=== PATIENT | male | born 1990 | race Caucasian/White ===

== ENCOUNTER 2016-10-20 08:27 | Emergency (ER) | payer OTHER ==
[2016-10-20 08:34] VITALS: BP 133/71; PULSE 90; RESP 18; TEMP 97.8
--- NOTE | 2016-10-20 08:45 | ED ---
General Adult HPI - General Chief complaint: Upper Respiratory Infection Stated complaint: COUGHING, CONGESTION Time Seen by Provider: 10/20/16 08:36 Source: patient, RN notes reviewed Mode of arrival: ambulatory Limitations: no limitations - History of Present Illness Initial comments: Patient 26-year-old male who presents emergency room today with chief complaint of cough congestion last 2 days. He has been to increased rhinorrhea and cough with positive sputum production with yellow in color. Patient denies any complaints or associated symptoms. Patient denies any recent fever, chills, shortness of breath, chest pain, back pain, abdominal pain, nausea or vomiting, numbness or tingling, dysuria or hematuria, constipation or diarrhea, headaches or visual changes, or any other complaints. - Related Data Home Medications Medication Instructions Recorded Confirmed Albuterol Inhaler [Ventolin Hfa 1 - 2 puff INHALATION Q4H PRN 10/20/16 10/20/16 Inhaler] Divalproex ER [Depakote ER] 1,000 mg PO BID 10/20/16 10/20/16 Paliperidone IM [Invega Sustenna] 234 mg IM Q30D 10/20/16 10/20/16 hydrOXYzine PAMOATE [Vistaril] 25 mg PO TID PRN 10/20/16 10/20/16 traZODone HCL [Desyrel] 100 mg PO HS 10/20/16 10/20/16 Previous Rx's Medication Instructions Recorded Loratadine [Claritin] 10 mg PO DAILY 20 Days 10/20/16 Allergies Allergy/AdvReac Type Severity Reaction Status Date / Time bee venom protein (honey bee) Allergy Unknown Verified 10/20/16 08:49 Review of Systems ROS Statement: Those systems with pertinent positive or pertinent negative responses have been documented in the HPI. ROS Other: All systems not noted in ROS Statement are negative. Past Medical History Past Medical History: Asthma, Seizure Disorder Additional Past Medical History / Comment(s): Pre diabetic History of Any Multi-Drug Resistant Organisms: None Reported Past Surgical History: No Surgical Hx Reported Past Psychological History: ADD/ADHD, Anxiety, Bipolar, Schizophrenia Smoking Status: Current every day smoker Past Alcohol Use History: None Reported Past Drug Use History: None Reported General Exam - General Exam Comments Initial Comments: General: The patient is awake and alert, in no distress, and does not appear acutely ill. Eye: Pupils are equal, round and reactive to light, extra-ocular movements are intact. No nystagmus. There is normal conjunctiva bilaterally. No signs of icterus. Ears, nose, mouth and throat: There are moist mucous membranes and no oral lesions. No tenderness over frontal or maxillary sinuses. Neck: The neck is supple, there is no tenderness or JVD. Cardiovascular: There is a regular rate and rhythm. No murmur, rub or gallop is appreciated. Respiratory: Lungs are clear to auscultation, respirations are non-labored, breath sounds are equal. No wheezes, stridor, rales, or rhonchi. Musculoskeletal: Normal ROM, no tenderness. Strength 5/5. Sensation intact. Pulses equal bilaterally 2+. Neurological: A&O x 3. CN II-XII intact, There are no obvious motor or sensory deficits. Coordination appears grossly intact. Speech is normal. Skin: Skin is warm and dry and no rashes or lesions are noted. Psychiatric: Cooperative, appropriate mood & affect, normal judgment. Limitations: no limitations Course Vital Signs 10/20/16 08:32 Temperature 97.8 F Pulse Rate 90 Respiratory 18 Rate Blood Pressure 133/71 O2 Sat by Pulse 99 Oximetry Medical Decision Making - Medical Decision Making Chest x-ray negative for any acute abnormality. Patient will be discharged home advised to use loratadine. Advised to use Flonase he states he has had at home. Patient will be discharged. Advised follow family doctor return for any other concerns. Disposition Clinical Impression: Upper respiratory infection Disposition: HOME SELF-CARE Condition: Good Instructions: Upper Respiratory Infection (ED) Additional Instructions: Please use medication as discussed. Please follow-up with family doctor in the next 2 days of symptoms have not improved. Please return to emergency room if the symptoms increase or worsen or for any other concerns. Prescriptions: Loratadine [Claritin] 10 mg PO DAILY 20 Days Referrals: Nonstaff,Physician [Primary Care Provider] - 1-2 days Time of Disposition: 09:04
--- NOTE | 2016-10-20 08:56 | XR ---
EXAMINATION TYPE: XR chest 2V DATE OF EXAM: 10/20/2016 COMPARISON: NONE TECHNIQUE: PA and lateral views submitted. HISTORY: Cough and congestion. FINDINGS: The lungs are clear and there is no pneumothorax, pleural effusion, or focal pneumonia. No overt fa ilure. IMPRESSION: 1. No acute process.
== END 2016-10-20 09:09 | disposition home or self-care (01) ==
LOC: EC 08:27
DX: J06.9 Acute upper respiratory infection, unspecified (principal); G40.909 Epilepsy, unspecified, not intractable, without status epilepticus; F31.9 Bipolar disorder, unspecified; F20.9 Schizophrenia, unspecified; F17.200 Nicotine dependence, unspecified, uncomplicated; Z91.030 Bee allergy status; Z79.899 Other long term (current) drug therapy
CPT/HCPCS: 71020; 99283

== ENCOUNTER 2016-12-27 13:08 | Emergency (ER) | payer OTHER ==
[2016-12-27 13:13] VITALS: BP 147/71; PULSE 80; RESP 20; TEMP 98.4
[2016-12-27] MEDS ORDERED: ONDANSETRON 4 MG ODT STARTER PACK 2 TAB BTL PO STA (13:41)
--- NOTE | 2016-12-27 13:43 | ED ---
General Adult HPI - General Chief complaint: Nausea/Vomiting/Diarrhea Stated complaint: vomiting Time Seen by Provider: 12/27/16 13:38 Source: patient, RN notes reviewed Mode of arrival: ambulatory Limitations: no limitations - History of Present Illness Initial comments: Patient is a 26-year-old male who presents emergency room today with a chief complaint of symptoms of nausea vomiting that started earlier today. Patient does admit that he believes he became overheated because of his next of kin heater at home. States he had an episode of nausea vomiting. States he had another episode prior to coming. He states not feeling nauseous at this time. States seems to come and go. He denies any abdominal pain. He denies any other sick contacts at home. Denies any other complaints. Patient denies any recent fever, chills, shortness of breath, chest pain, back pain, abdominal pain , numbness or tingling, dysuria or hematuria, constipation or diarrhea, headaches or visual changes, or any other complaints. - Related Data Home Medications Medication Instructions Recorded Confirmed Albuterol Inhaler [Ventolin Hfa 1 - 2 puff INHALATION Q4H PRN 10/20/16 10/20/16 Inhaler] Divalproex ER [Depakote ER] 1,000 mg PO BID 10/20/16 10/20/16 Paliperidone IM [Invega Sustenna] 234 mg IM Q30D 10/20/16 10/20/16 hydrOXYzine PAMOATE [Vistaril] 25 mg PO TID PRN 10/20/16 10/20/16 traZODone HCL [Desyrel] 100 mg PO HS 10/20/16 10/20/16 Previous Rx's Medication Instructions Recorded Loratadine [Claritin] 10 mg PO DAILY 20 Days tab 10/20/16 Ondansetron Odt [Zofran ODT] 4 mg PO Q8HR PRN #20 tab 12/27/16 Allergies Allergy/AdvReac Type Severity Reaction Status Date / Time bee venom protein (honey bee) Allergy Unknown Verified 12/27/16 13:13 Review of Systems ROS Statement: Those systems with pertinent positive or pertinent negative responses have been documented in the HPI. ROS Other: All systems not noted in ROS Statement are negative. Past Medical History Past Medical History: Asthma, Seizure Disorder Additional Past Medical History / Comment(s): Pre diabetic History of Any Multi-Drug Resistant Organisms: None Reported Past Surgical History: No Surgical Hx Reported Past Psychological History: ADD/ADHD, Anxiety, Bipolar, Schizophrenia Smoking Status: Current every day smoker Past Alcohol Use History: None Reported Past Drug Use History: None Reported General Exam - General Exam Comments Initial Comments: General: The patient is awake and alert, in no distress, and does not appear acutely ill. Eye: Pupils are equal, round and reactive to light, extra-ocular movements are intact. No nystagmus. There is normal conjunctiva bilaterally. No signs of icterus. Ears, nose, mouth and throat: There are moist mucous membranes and no oral lesions. Neck: The neck is supple, there is no tenderness or JVD. Cardiovascular: There is a regular rate and rhythm. No murmur, rub or gallop is appreciated. Respiratory: Lungs are clear to auscultation, respirations are non-labored, breath sounds are equal. No wheezes, stridor, rales, or rhonchi. Gastrointestinal: Soft, non-distended, non-tender abdomen without masses or organomegaly noted. There is no rebound or guarding present. No CVA tenderness. Bowel sounds are unremarkable. Musculoskeletal: Normal ROM, no tenderness. Strength 5/5. Sensation intact. Pulses equal bilaterally 2+. Neurological: A&O x 3. CN II-XII intact, There are no obvious motor or sensory deficits. Coordination appears grossly intact. Speech is normal. Skin: Skin is warm and dry and no rashes or lesions are noted. Psychiatric: Cooperative, appropriate mood & affect, normal judgment. Limitations: no limitations Course Vital Signs 12/27/16 13:11 Temperature 98.4 F Pulse Rate 80 Respiratory 20 Rate Blood Pressure 147/71 O2 Sat by Pulse 100 Oximetry Medical Decision Making - Medical Decision Making Patient examined at this time shows no signs of distress present soft nontender. His vitals are stable. He has no abdominal tenderness. No nausea at this time. Will be discharged home with a starter pack of nausea medication to use if needed and advised to increase oral fluids. Advised to return to emergency room if any symptoms increase worsen or for any other concerns. Disposition Clinical Impression: Nausea & vomiting Disposition: HOME SELF-CARE Condition: Good Instructions: Acute Nausea and Vomiting (ED) Additional Instructions: Please use medication as discussed. Please follow-up with family doctor in the next 2 days of symptoms have not improved. Please return to emergency room if the symptoms increase or worsen or for any other concerns. Prescriptions: Ondansetron Odt [Zofran ODT] 4 mg PO Q8HR PRN #20 tab PRN Reason: Nausea Referrals: None,Stated [Primary Care Provider] - 1-2 days Time of Disposition: 13:43
== END 2016-12-27 14:02 | disposition home or self-care (01) ==
LOC: EC 13:08 → EEVIPCON 13:08 → EC 14:02
DX: R11.2 Nausea with vomiting, unspecified (principal); F41.9 Anxiety disorder, unspecified; F31.9 Bipolar disorder, unspecified; F20.9 Schizophrenia, unspecified; F17.200 Nicotine dependence, unspecified, uncomplicated; Z79.899 Other long term (current) drug therapy; Z91.030 Bee allergy status
CPT/HCPCS: 99283; S0119

== ENCOUNTER 2017-05-11 09:10 | Emergency (ER) | payer OTHER ==
[2017-05-11 09:50] VITALS: BP 131/58; PULSE 76; RESP 16; TEMP 98.7
--- NOTE | 2017-05-11 10:00 | ED ---
General Adult HPI - General Chief complaint: Neck Pain/Injury Stated complaint: Vomiting Time Seen by Provider: 05/11/17 09:52 Source: patient, RN notes reviewed Mode of arrival: ambulatory Limitations: no limitations - History of Present Illness Initial comments: This is a 26-year-old female presents emergency Department chief complaint of cough congestion. Patient states symptoms started a few days ago. Patient states been coughed so hard that he vomits. He states he does not have any abdominal pain no nausea rest she is coughing. Patient denies any known fevers or chills denies ear pain does admit to some runny nose congestion symptoms. Patient has tried no [id number] cough and cold medications other than cough drops. Patient also complains of pain on the right side of his neck towards the front. Patient states it feels swollen. - Related Data Home Medications Medication Instructions Recorded Confirmed Albuterol Inhaler [Ventolin Hfa 1 - 2 puff INHALATION RT-Q4H PRN 10/20/16 Inhaler] Divalproex ER [Depakote ER] 1,000 mg PO BID 10/20/16 05/11/17 Paliperidone IM [Invega Sustenna] 234 mg IM Q30D 10/20/16 05/11/17 Fenofibrate [Fenofibrate] 160 mg PO DAILY 05/11/17 05/11/17 Fluticasone Nasal [place] [Flonase 1 spray EA NOSTRIL DAILY 05/11/17 05/11/17 Nasal [place]] Montelukast [Singulair] 10 mg PO HS 05/11/17 05/11/17 Omeprazole [Omeprazole] 20 mg PO BID 05/11/17 05/11/17 cloNIDine HCL [Catapres] 0.1 mg PO BID 05/11/17 05/11/17 metFORMIN HCL [Glucophage] 500 mg PO DAILY 05/11/17 05/11/17 Previous Rx's Medication Instructions Recorded Amoxicillin/Potassium Clav 1 tab PO Q12HR #20 tab 05/11/17 [Augmentin 875-125 Tablet] Ondansetron Odt [Zofran Odt] 4 mg PO Q8HR PRN #10 tab 05/11/17 guaiFENesin-DM 100-10MG/5ML 10 ml PO Q8HR #1 bottle 05/11/17 [Robitussin DM] Allergies Allergy/AdvReac Type Severity Reaction Status Date / Time bee venom protein (honey bee) Allergy Unknown Verified 05/11/17 10:19 Review of Systems ROS Statement: Those systems with pertinent positive or pertinent negative responses have been documented in the HPI. ROS Other: All systems not noted in ROS Statement are negative. Past Medical History Past Medical History: Asthma, Seizure Disorder Additional Past Medical History / Comment(s): Pre diabetic History of Any Multi-Drug Resistant Organisms: None Reported Past Surgical History: No Surgical Hx Reported Past Psychological History: ADD/ADHD, Anxiety, Bipolar, Schizophrenia Smoking Status: Current every day smoker Past Alcohol Use History: None Reported Past Drug Use History: None Reported General Exam Limitations: no limitations General appearance: alert, in no apparent distress Head exam: Present: atraumatic, normocephalic, normal inspection Eye exam: Present: normal appearance, PERRL, EOMI. Absent: scleral icterus, conjunctival injection, periorbital swelling ENT exam: Present: normal exam, normal oropharynx, mucous membranes moist, TM's normal bilaterally, normal external ear exam Neck exam: Present: normal inspection, full ROM, lymphadenopathy (Tenderness the right anterior cervical chain with swollen lymph node). Absent: tenderness , meningismus Respiratory exam: Present: normal lung sounds bilaterally. Absent: respiratory distress, wheezes, rales, rhonchi, stridor Cardiovascular Exam: Present: regular rate, normal rhythm, normal heart sounds. Absent: systolic murmur, diastolic murmur, rubs, gallop, clicks GI/Abdominal exam: Present: soft, normal bowel sounds. Absent: distended, tenderness, guarding, rebound, rigid Back exam: Absent: CVA tenderness (R), CVA tenderness (L) Skin exam: Present: warm, dry, intact, normal color. Absent: rash Course Vital Signs 05/11/17 09:46 Temperature 98.7 F Pulse Rate 76 Respiratory 16 Rate Blood Pressure 131/58 O2 Sat by Pulse 97 Oximetry Medical Decision Making - Medical Decision Making 26-year-old male present emergency department for multiple complaints. Patient has URI with lymphadenopathy. Patient given antibiotics for that. Patient also has posttussive vomiting will give Zofran advised to merchandise pickup/receiving associate over-the- counter cough syrup. Disposition Clinical Impression: Cervical lymphadenopathy, URI (upper respiratory infection), Post-tussive emesis Disposition: HOME SELF-CARE Condition: Stable Instructions: Upper Respiratory Infection (ED) Additional Instructions: Please return to the Emergency Department if symptoms worsen or any other concerns. Prescriptions: Amoxicillin/Potassium Clav [Augmentin 875-125 Tablet] 1 tab PO Q12HR #20 tab guaiFENesin-DM 100-10MG/5ML [Robitussin DM] 10 ml PO Q8HR #1 bottle Ondansetron Odt [Zofran Odt] 4 mg PO Q8HR PRN #10 tab PRN Reason: Nausea Referrals: None,Stated [Primary Care Provider] - 1-2 days Time of Disposition: 10:28
--- NOTE | 2017-05-11 10:22 | XR ---
EXAMINATION TYPE: XR chest 2V DATE OF EXAM: 05/11/2017 COMPARISON: NONE HISTORY: Chest pain TECHNIQUE: Frontal and lateral views of the chest are obtained. FINDINGS: There is no focal air space opacity. No evidence for pneumothorax. No pleural effusion. The cardiac silhouette size is within normal limits. The osseous structures are grossly intact. IMPRESSION: 1. No acute cardiopulmonary process.
[2017-05-11] MEDS ORDERED: IBUPROFEN 600 MG TAB PO STA (10:31)
== END 2017-05-11 10:48 | disposition home or self-care (01) ==
LOC: EC 09:10
DX: R59.0 Localized enlarged lymph nodes (principal); J06.9 Acute upper respiratory infection, unspecified; R11.10 Vomiting, unspecified; J45.909 Unspecified asthma, uncomplicated; G40.909 Epilepsy, unspecified, not intractable, without status epilepticus; F31.9 Bipolar disorder, unspecified; F90.9 Attention-deficit hyperactivity disorder, unspecified type; F41.9 Anxiety disorder, unspecified; F20.9 Schizophrenia, unspecified; F17.200 Nicotine dependence, unspecified, uncomplicated; Z79.51 Long term (current) use of inhaled steroids; Z79.899 Other long term (current) drug therapy; Z91.030 Bee allergy status
CPT/HCPCS: 71046; 99284

== ENCOUNTER 2017-07-13 14:32 | Inpatient (IN) | payer MEDICAID, OTHER ==
--- NOTE | 2017-07-13 15:46 | ED ---
Psych HPI - General Chief Complaint: Psychiatric Symptoms Stated Complaint: Petition Time Seen by Provider: 07/13/17 14:47 Source: patient, police, RN notes reviewed, old records reviewed Mode of arrival: ambulatory - History of Present Illness Initial Comments: Patient is a 26-year-old male presents emergency department today chief complaint of suicidal ideation and aggressive behavior. Apparently according to court petition Patient has not been taking his medication, he has an injectable medication he has not had since March. Patient has been acting aggressive towards his guardian. Also made threats to harm his landlord. Patient arrives via police escort. Uncooperative. - Related Data Home Medications Medication Instructions Recorded Confirmed Divalproex ER [Depakote ER] 1,000 mg PO BID 10/20/16 07/13/17 Fenofibrate [Fenofibrate] 160 mg PO DAILY 05/11/17 07/13/17 Fluticasone Nasal [place] [Flonase 1 spray EA NOSTRIL DAILY 05/11/17 07/13/17 Nasal [place]] Montelukast [Singulair] 10 mg PO HS 05/11/17 07/13/17 Omeprazole [Omeprazole] 20 mg PO BID 05/11/17 07/13/17 cloNIDine HCL [Catapres] 0.1 mg PO HS 05/11/17 07/13/17 metFORMIN HCL [Glucophage] 500 mg PO DAILY 05/11/17 07/13/17 Lisinopril [Zestril] 5 mg PO DAILY 07/11/17 07/13/17 Albuterol Inhaler [Ventolin Hfa 1 - 2 puff INHALATION RT-Q4H PRN 07/13/17 Inhaler] Allergies Allergy/AdvReac Type Severity Reaction Status Date / Time bee venom protein (honey bee) Allergy Unknown Verified 07/13/17 15:34 Review of Systems ROS Statement: Those systems with pertinent positive or pertinent negative responses have been documented in the HPI. ROS Other: All systems not noted in ROS Statement are negative. Past Medical History Past Medical History: Asthma, Seizure Disorder Additional Past Medical History / Comment(s): Pre diabetic History of Any Multi-Drug Resistant Organisms: None Reported Past Surgical History: No Surgical Hx Reported Past Psychological History: ADD/ADHD, Anxiety, Bipolar, Depression, Schizophrenia Smoking Status: Current every day smoker Past Alcohol Use History: Occasional Past Drug Use History: None Reported General Exam - General Exam Comments Initial Comments: 26-year-old male. Alert and oriented. No acute distress. Limitations: no limitations General appearance: alert, in no apparent distress Head exam: Present: atraumatic, normocephalic, normal inspection Eye exam: Present: normal appearance, PERRL, EOMI. Absent: scleral icterus, conjunctival injection, periorbital swelling ENT exam: Present: normal exam, mucous membranes moist Neck exam: Present: normal inspection. Absent: tenderness, meningismus, lymphadenopathy Respiratory exam: Present: normal lung sounds bilaterally. Absent: respiratory distress, wheezes, rales, rhonchi, stridor Cardiovascular Exam: Present: regular rate, normal rhythm, normal heart sounds. Absent: systolic murmur, diastolic murmur, rubs, gallop, clicks GI/Abdominal exam: Present: soft, normal bowel sounds. Absent: distended, tenderness, guarding, rebound, rigid Extremities exam: Present: normal inspection, full ROM, normal capillary refill. Absent: tenderness, pedal edema, joint swelling, calf tenderness Back exam: Present: normal inspection Neurological exam: Present: alert, oriented X3, CN II-XII intact Psychiatric exam: Present: agitated, anxious. Absent: normal affect, normal mood, homicidal ideation, suicidal ideation Skin exam: Present: warm, dry, intact, normal color. Absent: rash Course Vital Signs 07/13/17 07/13/17 14:39 18:36 Temperature 97.1 F L 97 F L Pulse Rate 70 55 L Respiratory 18 18 Rate Blood Pressure 128/61 116/56 O2 Sat by Pulse 98 97 Oximetry Medical Decision Making - Medical Decision Making Patient was evaluated by EPS. They felt Patient will benefit from admission. Clinical suspicion medication filled out by Dr. Ashley. Patient's been cooperative in the emergency department since initial evaluation. - Lab Data Lab Results 07/13/17 07/13/17 Range/Units 16:30 16:40 Urine Opiates Screen Not Detected (NotDetected) Ur Oxycodone Screen Not Detected (NotDetected) Urine Methadone Screen Not Detected (NotDetected) Ur Propoxyphene Screen Not Detected (NotDetected) Ur Barbiturates Screen Not Detected (NotDetected) Valproic Acid <10.0 ug/mL U Tricyclic Antidepress Not Detected (NotDetected) Ur Phencyclidine Scrn Not Detected (NotDetected) Ur Amphetamines Screen Not Detected (NotDetected) U Methamphetamines Scrn Not Detected (NotDetected) U Benzodiazepines Scrn Not Detected (NotDetected) Urine Cocaine Screen Not Detected (NotDetected) U Marijuana (THC) Screen Not Detected (NotDetected) Disposition Clinical Impression: Aggression, Non-compliant patient Disposition: ADMITTED IP TO THIS HOSP Condition: Stable Is patient prescribed a controlled substance at d/c from ED?: No When asked, does pt state using other controlled substances?: No If prescribed controlled substance>3 days was MAPS reviewed?: No If opioid is for acute pain is fill amount 7 days or less?: No If Rx opioid, was Start Talking consent form obtained?: No Time of Disposition: 19:38
[2017-07-13 17:00] LABS: Phencyclidine Screen,Urine Not Detected (NotDetected); Urn Cannabinoid Scrn Not Detected (NotDetected)
[2017-07-13 17:01] LABS: Amphetamine Screen,Urine Not Detected (NotDetected); Barbiturate Screen,Urine Not Detected (NotDetected); Benzodiazepines Screen,Urine Not Detected (NotDetected); Cocaine Screen,Urine Not Detected (NotDetected); Methadone Screen, Urine Not Detected (NotDetected); Opiate Screen,Urine Not Detected (NotDetected); Oxycodone Screen, Urine Not Detected (NotDetected); Tricyclic Antidepressant,Urine Not Detected (NotDetected)
[2017-07-13] MEDS ORDERED: LORazepam 2 MG/ML INJ IM STA (17:23)
[2017-07-13] MEDS ORDERED: ZIPRASIDONE 20 MG VIAL IM STA (17:25)
[2017-07-13] MEDS ORDERED: ACETAMINOPHEN TAB 325 MG TAB PO PRN (18:52)
[2017-07-13] MEDS ORDERED: MAG HYDROX/AL HYDROX/SIMETH 30 ML CUP PO PRN (18:52)
[2017-07-13] MEDS ORDERED: MAGNESIUM HYDROXIDE 2,400 MG/10 ML CUP PO PRN (18:52)
[2017-07-13] MEDS ORDERED: ALBUTEROL INHALER 60 PUFF/8 GM INHALER INHALATION PRN (18:55)
[2017-07-13] MEDS ORDERED: LORazepam 2 MG/ML INJ IM PRN (18:56)
[2017-07-13] MEDS ORDERED: PALIPERIDONE IM 234 MG/1.5 ML SYG IM STA (18:57)
[2017-07-13 19:16] LABS: Appearance,Urine Turbid (Clear); Bacteria,Urine Rare /hpf; Bilirubin,Urine Negative (Negative); Blood,Urine Negative (Negative); Budding Yeast,Urine Many /hpf; Calcium Oxalate Crystals,Urine Many /hpf; Color,Urine Yellow; Glucose,Urine (UA) Negative (Negative); Ketones,Urine Negative (Negative); Leukocyte Esterase,Urine Trace (Negative); Mucus,Urine Few /hpf; Nitrite,Urine Negative (Negative); PH, Urine 7.5 (5.0-8.0); Protein,Urine 1+ (Negative); RBC,Urine 2 /hpf (0-5); Specific Gravity,Urine 1.024 (1.001-1.035); WBC,Urine 8 /hpf (0-5)
[2017-07-13] MEDS: NICOTINE 14MG/24HR PATCH TRANSDERM SCH (20:04)
[2017-07-13] MEDS: DIVALPROEX ER 500 MG TAB.ER.24H PO SCH (20:29)
[2017-07-13] MEDS: MONTELUKAST 10 MG TAB PO SCH (20:31)
[2017-07-13] MEDS: cloNIDine HCL 0.1 MG TAB PO SCH (20:31)
[2017-07-13] MEDS: diphenhydrAMINE 50 MG CAP PO SCH (20:31)
[2017-07-13 23:01] LABS: Chloride 108 mmol/L (98-107); Neutrophils # (A) 6.1 k/uL (1.3-7.7)
[2017-07-13 23:05] LABS: ALT 41 U/L (21-72); AST 29 U/L (17-59); Albumin 4.7 g/dL (3.5-5.0); Alkaline Phosphatase 47 U/L (38-126); Anion Gap 18 mmol/L; Basophils % (A) 0 %; Blood Urea Nitrogen 10 mg/dL (9-20); Carbon Dioxide 22 mmol/L (22-30); Cholesterol 123 mg/dL (<200); Eosinophils # (A) 0.1 k/uL (0-0.7); Eosinophils % (A) 1 %; Glucose 61 mg/dL (74-99); HCT 51.9 % (39.0-53.0); HDL Cholesterol 33 mg/dL (40-60); HGB 17.2 gm/dL (13.0-17.5); LDL Cholesterol,Calculated 49 mg/dL (0-99); Lymphocytes # (A) 2.4 k/uL (1.0-4.8); Lymphocytes % (A) 27 %; MCH 28.5 pg (25.0-35.0); MCHC 33.2 g/dL (31.0-37.0); MCV 85.7 fL (80.0-100.0); Mean Platelet Volume 9.4; Monocytes # (A) 0.4 k/uL (0-1.0); Monocytes % (A) 5 %; Neutrophils % (A) 67 %; Platelet Count 191 k/uL (150-450); Potassium 4.2 mmol/L (3.5-5.1); RBC 6.06 m/uL (4.30-5.90); RDW 13.5 % (11.5-15.5); Sodium 148 mmol/L (137-145); Total Bilirubin 0.3 mg/dL (0.2-1.3); Total Protein 7.3 g/dL (6.3-8.2); Triglycerides 206 mg/dL (<150); WBC 9.1 k/uL (3.8-10.6)
[2017-07-14] MEDS: NICOTINE 14MG/24HR PATCH TRANSDERM SCH (07:51)
[2017-07-14] MEDS: FLUTICASONE 50MCG/SPRAY NASAL 16GM EA NOSTRIL SCH (07:51)
[2017-07-14] MEDS: DIVALPROEX ER 500 MG TAB.ER.24H PO SCH ×2 (07:51→21:07)
[2017-07-14] MEDS: FENOFIBRATE 160 MG TAB PO SCH (07:51)
[2017-07-14] MEDS: LISINOPRIL 5 MG TAB PO SCH (07:51)
[2017-07-14] MEDS: PANTOPRAZOLE 40 MG TABLET PO SCH (07:51)
[2017-07-14] MEDS: metFORMIN 500 MG TAB PO SCH (07:58)
[2017-07-14] MEDS: NICOTINE POLACRILEX 2 MG GUM BUCCAL PRN ×4 (09:51→21:10)
[2017-07-14] MEDS: LORazepam 1 MG TAB PO PRN ×2 (12:41→19:00)
[2017-07-14 13:11] LABS: Hemoglobin A1C 5.2 % (4.0-6.0)
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
[2017-07-14] MEDS: diphenhydrAMINE 50 MG CAP PO SCH (21:07)
[2017-07-14] MEDS: cloNIDine HCL 0.1 MG TAB PO SCH (21:07)
[2017-07-14] MEDS: MONTELUKAST 10 MG TAB PO SCH (21:07)
[2017-07-14] MEDS: SULFAMETHOX-TMP 800-160MG 1 EACH TAB PO SCH (21:08)
--- NOTE | 2017-07-15 03:52 | CONS ---
CONSULTATION DATE OF SERVICE: 07/14/2017 HISTORY OF PRESENT ILLNESS: This 26-year-old gentleman with a past medical history of asthma, seizure disorder, ADHD, bipolar depression was admitted for psychiatric evaluations. There is no history of fever, rigors or chills. No history of headache, loss of consciousness or seizures at this time. PAST MEDICAL HISTORY: History of asthma, seizure disorder, ADHD, anxiety, bipolar depression. MEDICATIONS: Prior to admission include home medications are: 1. Invega Sustenna 235 mg IM monthly. 2. Glucovance 500 mg p.o. daily. 3. Catapres 0.1 q.h.s. 4. Omeprazole 20 mg daily. 5. Singulair 10 mg q.h.s. 6. Zestril 5 daily. 7. Flonase 1 spray daily. 8. Fenofibrate 160 mg p.o. daily. 9. Depakote ER 1000 mg p.o. b.i.d. 10.Ventolin 1-2 puffs q.4h p.r.n. ALLERGIES: BEE VENOM. FAMILY HISTORY: History of in the family. SOCIAL HISTORY: History of smoking and occasional alcohol intake. REVIEW OF SYSTEMS: ENT: No diminished hearing or vision. CARDIOVASCULAR: No angina or palpitation. Respirations: No cough or hemoptysis. GI no nausea or vomiting. no dysuria or hematuria. Nervous System: No numbness or weakness. Allergy/Immunology: No asthma or hayfever. Musculoskeletal: As mentioned earlier. Hematology/Oncology: No history of anemia. Endocrine: Diabetes. Constitutional: As mentioned earlier. Dermatology: Negative. Rheumatology: Negative. Psychiatric: As mentioned earlier. PHYSICAL EXAMINATION: GENERAL: Alert and oriented times three. VITAL SIGNS: Pulse is 65, blood pressure 150/63, respirations 16, temperature 97.8, pulse ox 97% on room air. HEENT: Conjunctivae normal. Oral mucosa moist. NECK is no jugular venous distention. No carotid bruit. No lymph node enlargement. CARDIOVASCULAR: S1, S2. RESPIRATIONS: Breath sounds diminished in the bases. A few scattered rhonchi. No crackles. ABDOMEN: Soft, nontender. No mass palpable. LEGS: No edema and no swelling. NERVOUS SYSTEM: Higher functions as mentioned earlier. Moves all four limbs. No focal deficits. LYMPHATICS: No lymph nodes palpable in the neck, axillae or groin. SKIN: No ulcers, rash or bleeding. LAB DATA: CBC within normal limits. Sodium 148 and UA 8 WBC. ASSESSMENT: 1. Anxiety, bipolar depression. 2. Possible urinary tract infection. 3. Asthma. 4. Seizure disorder. 5. History of prediabetes. 7. History of continued ongoing nicotine dependence. 8. History of attention-deficit disorder/attention-deficit/hyperactivity disorder. RECOMMENDATIONS AND DISCUSSION: In this 26 -year-old gentleman who presented with multiple complex medical issues, we will monitor the patient closely. Continue the current medications, management and symptomatic treatment. I would recommend resume the home medications. Monitor blood sugars closely. Otherwise further recommendations per psychiatric service. I would also recommend a short course of antibiotics also for the presumed UTI. Continue the current medications, management and symptomatic treatment. Otherwise at this time I would recommend continue with a short course of antibiotics. Further recommendations to follow. MMODL / IJN: [id number] / MTDSheba
[2017-07-15] MEDS: NICOTINE POLACRILEX 2 MG GUM BUCCAL PRN ×6 (08:13→21:03)
[2017-07-15] MEDS: DIVALPROEX ER 500 MG TAB.ER.24H PO SCH ×2 (08:13→20:57)
[2017-07-15] MEDS: LISINOPRIL 5 MG TAB PO SCH (08:13)
[2017-07-15] MEDS: SULFAMETHOX-TMP 800-160MG 1 EACH TAB PO SCH ×2 (08:14→20:57)
[2017-07-15] MEDS: metFORMIN 500 MG TAB PO SCH (08:14)
[2017-07-15] MEDS: FENOFIBRATE 160 MG TAB PO SCH (08:14)
[2017-07-15] MEDS: PANTOPRAZOLE 40 MG TABLET PO SCH (08:14)
[2017-07-15 08:25] LABS: Cholesterol 97 mg/dL (<200); HDL Cholesterol 31 mg/dL (40-60); LDL Cholesterol,Calculated 34 mg/dL (0-99); Triglycerides 158 mg/dL (<150)
[2017-07-15] MEDS: FLUTICASONE 50MCG/SPRAY NASAL 16GM EA NOSTRIL SCH (09:25)
[2017-07-15] MEDS: LORazepam 1 MG TAB PO PRN (13:26)
--- NOTE | 2017-07-15 17:53 | P.PN ---
Progress Note - Text Progress Note Date: 07/15/17 Patient was seen today. Stated he has not done anything wrong to be in the hospital. Stated he wanted to go home. Sister visited him today, claims his sister was tearful about him being in the hospital. Reports good sleep and appetite. Nice current symptoms of depression. He is preoccupied about his discharge and asks staff repeatedly about his discharge. He asked for will be taking him home when he gets discharged. He stated police brought him here so police can take him back home. He wants to live with his aunt. He states his aunt doesn't have a car. He is upset about being petitioned by his guardian. He reports being compliant with his medications. No Side effects reported. No anger or agitation reported. This is 26-year-old male. He is morbidly obese. He is concerned about his obesity and asks for weight reduction medications. He appeared in fair grooming and hygiene. He maintains good eye contact. No abnormal movements noted. Speech and thought processes are linear and goal directed. He has baseline paranoia. Denies current auditory or visual hallucinations. He denies current suicidal or homicidal ideations. Alert and oriented 4. Insight and judgment are improving. Continue Depakote thousand milligrams twice daily. He received invega 234 mg im in er. to recieve his next dose of 156mg im within a week of his first injection and monthly thereafter. Monitor for symptoms Encourage participation in therapeutic group therapies and downey milieu. antisqueak worker to coordinate treatment team meeting with the patient's guardian and discharge planning
[2017-07-15] MEDS: cloNIDine HCL 0.1 MG TAB PO SCH (20:56)
[2017-07-15] MEDS: MONTELUKAST 10 MG TAB PO SCH (20:57)
[2017-07-15] MEDS: diphenhydrAMINE 50 MG CAP PO SCH (20:57)
[2017-07-16] MEDS: NICOTINE POLACRILEX 2 MG GUM BUCCAL PRN ×7 (05:26→22:16)
[2017-07-16] MEDS: FENOFIBRATE 160 MG TAB PO SCH (08:12)
[2017-07-16] MEDS: LISINOPRIL 5 MG TAB PO SCH (08:12)
[2017-07-16] MEDS: DIVALPROEX ER 500 MG TAB.ER.24H PO SCH ×2 (08:12→21:29)
[2017-07-16] MEDS: metFORMIN 500 MG TAB PO SCH (08:12)
[2017-07-16] MEDS: FLUTICASONE 50MCG/SPRAY NASAL 16GM EA NOSTRIL SCH (08:12)
[2017-07-16] MEDS: PANTOPRAZOLE 40 MG TABLET PO SCH (08:13)
[2017-07-16] MEDS: SULFAMETHOX-TMP 800-160MG 1 EACH TAB PO SCH ×2 (08:13→20:15)
--- NOTE | 2017-07-16 08:28 | P.PN ---
Progress Note - Text Progress Note Date: 07/16/17 Patient was seen for a routine follow-up examination. Patient does not have any complaint. He hopes to be discharged tomorrow. He has been taking his medications, interacts with peers, attends groups and denies any adverse effects from his medications. This is a white ambulatory male with adequate hygiene. He is polite and cooperative. He does not show any psychomotor agitation or retardation. His speech is spontaneous relevant and goal-directed. His mood is euthymic and affect is appropriate. He denies suicide and homicide thoughts, hallucinations and delusional thinking. He is well oriented with adequate memory concentration general fund of knowledge etc. Plan: Continue Depakote and other medications for physical problems, groups and other therapies.
[2017-07-16] MEDS: LORazepam 1 MG TAB PO PRN ×2 (09:26→18:11)
[2017-07-16] MEDS: MONTELUKAST 10 MG TAB PO SCH (20:15)
[2017-07-16] MEDS: diphenhydrAMINE 50 MG CAP PO SCH (20:15)
[2017-07-16] MEDS: cloNIDine HCL 0.1 MG TAB PO SCH (20:16)
[2017-07-16] MEDS: ZIPRASIDONE 20 MG VIAL IM PRN (22:23)
[2017-07-17] MEDS: metFORMIN 500 MG TAB PO SCH (08:41)
[2017-07-17] MEDS: DIVALPROEX ER 500 MG TAB.ER.24H PO SCH ×2 (08:41→20:52)
[2017-07-17] MEDS: LISINOPRIL 5 MG TAB PO SCH (08:41)
[2017-07-17] MEDS: PANTOPRAZOLE 40 MG TABLET PO SCH (08:41)
[2017-07-17] MEDS: FENOFIBRATE 160 MG TAB PO SCH (08:41)
[2017-07-17] MEDS: SULFAMETHOX-TMP 800-160MG 1 EACH TAB PO SCH ×2 (08:42→20:52)
[2017-07-17] MEDS: NICOTINE POLACRILEX 2 MG GUM BUCCAL PRN ×4 (08:47→23:05)
[2017-07-17] MEDS: FLUTICASONE 50MCG/SPRAY NASAL 16GM EA NOSTRIL SCH (09:12)
--- NOTE | 2017-07-17 11:19 | P.PN ---
Progress Note - Text Progress Note Date: 07/17/17 Patient was seen for routine follow-up examination. He has been asking me if he can go home today on multiple times. He has been taking his medications and attends groups. Has not been violent or combative. He has a guardian and the social media content manager is trying to contact him regarding discharge plan. This is a white ambulatory male with adequate hygiene. He is polite and cooperative. He does not show any psychomotor agitation or retardation. His speech is spontaneous and goal-directed. He continues to deny suicide and homicide thoughts, hallucinations and delusional thinking. He is oriented with adequate memory concentration etc. Plan: Continue his current medications groups and other therapies. Discharge is deferred until the social media content manager can contact the guardian and gets the clearance.
[2017-07-17] MEDS: ZIPRASIDONE 20 MG VIAL IM PRN (13:55)
[2017-07-17] MEDS: diphenhydrAMINE 50 MG CAP PO SCH (20:52)
[2017-07-17] MEDS: MONTELUKAST 10 MG TAB PO SCH (20:52)
[2017-07-17] MEDS: cloNIDine HCL 0.1 MG TAB PO SCH (20:52)
[2017-07-17] MEDS: LORazepam 1 MG TAB PO PRN (21:23)
[2017-07-18 05:38] VITALS: BP 128/73; PULSE 97; RESP 16; TEMP 97.7
[2017-07-18] MEDS: DIVALPROEX ER 500 MG TAB.ER.24H PO SCH (08:03)
[2017-07-18] MEDS: PANTOPRAZOLE 40 MG TABLET PO SCH (08:03)
[2017-07-18] MEDS: metFORMIN 500 MG TAB PO SCH (08:03)
[2017-07-18] MEDS: FENOFIBRATE 160 MG TAB PO SCH (08:03)
[2017-07-18] MEDS: LISINOPRIL 5 MG TAB PO SCH (08:03)
[2017-07-18] MEDS: FLUTICASONE 50MCG/SPRAY NASAL 16GM EA NOSTRIL SCH (08:03)
[2017-07-18] MEDS: SULFAMETHOX-TMP 800-160MG 1 EACH TAB PO SCH (08:03)
--- NOTE | 2017-07-18 10:05 | P.DS ---
Providers Date of admission: 07/13/17 18:29 Expected date of discharge: 07/18/17 Attending physician: Yazmin Anthony Consults: 07/14/17 07:30 Consult Physician Routine Consulting Provider: Oliverio Ramos Consult Reason/Comments: history and physical Do you want consulting provider notified?: Yes Primary care physician: [facility] Course: Patient had his psychiatric evaluation done by , had his physical examination and psychosocial evaluation. Patient already had his Invega Sustenna injection in the ER before he came to the unit. His Depakote was continued at the dose of 1000 mg twice a day. Patient attended groups, socialized with peers and interacted with staff. He continued to take his medications as prescribed and did not show any violent or threatening behavior. He also agreed to comply with outpatient treatment. His discharge plan was discussed with his legal guardian who agreed with the discharge plan. Patient was started on Bactrim DS for UTI which cleared up. In view of all these it was agreed to discharge him. Condition on discharge: This is an obese ambulatory white male with adequate hygiene. He does not show any psychomotor agitation or retardation. His speech is spontaneous relevant and goal-directed. His mood is euthymic and affect is appropriate. He continues to deny suicide and homicide thoughts. He is well oriented with adequate memory concentration etc. But he has difficulty in calculation and some problem solving. His insight and judgment are improving. Diagnosis on discharge: Other specified bipolar and related disorder F 31.89. Unspecified intellectual disability F 79. ALLERGY to bee stings. Bronchial asthma. Hypertension. Hyperlipidemia. ALLERGIC rhinitis. Diabetes mellitus. GERD. UTI resolved. Obesity. Patient was advised and agreed to take his medications as prescribed, to learn better coping skills through therapy, not to drive or operate missionary if he feels sleepy, not to drink alcohol or use drugs, to call his psychiatrist or therapist if he feels confused, gets suicidal thoughts etc. and if he cannot get hold of them to go to nearest ER. Patient Condition at Discharge: Stable Plan - Discharge Summary New Discharge Prescriptions: New Acetaminophen Tab [Tylenol] 650 mg PO Q4HR PRN tab PRN Reason: Pain/Discomfort Mag Hydrox/Al Hydrox/Simeth [Maalox] 30 ml PO Q4HR PRN cup PRN Reason: GI Upset Pantoprazole [Protonix] 40 mg PO AC-BRKFST 30 Days #30 tablet.dr Continue Divalproex ER [Depakote ER] 1,000 mg PO BID cloNIDine HCL [Catapres] 0.1 mg PO HS Fenofibrate 160 mg PO DAILY Fluticasone Nasal [place] [Flonase Nasal [place]] 1 spray EA NOSTRIL DAILY metFORMIN HCL [Glucophage] 500 mg PO DAILY Lisinopril [Zestril] 5 mg PO DAILY Albuterol Inhaler [Ventolin Hfa Inhaler] 1 - 2 puff INHALATION RT-Q4H PRN PRN Reason: Shortness Of Breath Paliperidone IM [Invega Sustenna] 234 mg IM QMONTH 30 Days #1 syringe Discontinued Montelukast [Singulair] 10 mg PO HS Omeprazole [Omeprazole] 20 mg PO BID Discharge Medication List Divalproex ER [Depakote ER] 1,000 mg PO BID 10/20/16 [History] Fenofibrate 160 mg PO DAILY 05/11/17 [History] Fluticasone Nasal [place] [Flonase Nasal [place]] 1 spray EA NOSTRIL DAILY 05/11/17 [History] cloNIDine HCL [Catapres] 0.1 mg PO HS 05/11/17 [History] metFORMIN HCL [Glucophage] 500 mg PO DAILY 05/11/17 [History] Lisinopril [Zestril] 5 mg PO DAILY 07/11/17 [History] Albuterol Inhaler [Ventolin Hfa Inhaler] 1 - 2 puff INHALATION RT-Q4H PRN [History] Acetaminophen Tab [Tylenol] 650 mg PO Q4HR PRN tab 07/18/17 [Rx] Mag Hydrox/Al Hydrox/Simeth [Maalox] 30 ml PO Q4HR PRN cup 07/18/17 [Rx] Paliperidone IM [Invega Sustenna] 234 mg IM QMONTH 30 Days #1 syringe 07/18/17 [ Rx] Pantoprazole [Protonix] 40 mg PO AC-BRKFST 30 Days #30 tablet. 07/18/17 [Rx] Follow up Appointment(s)/Referral(s): [facility] [Outside] - 07/19/17 10:00 am (07.19.17 at 10:00am with Yancy 06.05.18 at 08:20am with Dr. Oliveira) [facility] [Primary Care Provider] - 1-2 days
== END 2017-07-18 12:19 | disposition home or self-care (01) | DRG 885 ==
LOC: EC 14:32 → 3MHU 18:29
PROVIDERS: ADMIT Psychiatry & Neurology Psychiatry; ATTEND Psychiatry & Neurology Psychiatry
DX: F31.89 Other bipolar disorder (principal); N39.0 Urinary tract infection, site not specified; R45.851 Suicidal ideations; F79 Unspecified intellectual disabilities; E11.9 Type 2 diabetes mellitus without complications; E66.01 Morbid (severe) obesity due to excess calories; E78.5 Hyperlipidemia, unspecified; F17.210 Nicotine dependence, cigarettes, uncomplicated; F41.9 Anxiety disorder, unspecified; G40.909 Epilepsy, unspecified, not intractable, without status epilepticus; I10 Essential (primary) hypertension; J45.909 Unspecified asthma, uncomplicated; K21.9 Gastro-esophageal reflux disease without esophagitis; Z91.030 Bee allergy status; Z91.19 Patient's noncompliance with other medical treatment and regimen; Z79.51 Long term (current) use of inhaled steroids; Z79.899 Other long term (current) drug therapy; Z79.84 Long term (current) use of oral hypoglycemic drugs
CPT/HCPCS: 80053; 80061; 80164; 80306; 81001; 82075; 83036; 84443; 85025; 99285

== ENCOUNTER 2017-08-20 19:36 | Emergency (ER) | payer OTHER ==
[2017-08-20 19:41] VITALS: BP 126/83; PULSE 80; RESP 18; TEMP 99
[2017-08-20] MEDS ORDERED: TOBRAMYCIN 0.3% OPHTH DROPS 5 ML BTL LEFT EYE STA (20:21)
--- NOTE | 2017-08-20 20:24 | ED ---
General Adult HPI - General Chief complaint: ENT Stated complaint: eye swelling/discharge Time Seen by Provider: 08/20/17 19:36 Source: patient, RN notes reviewed Mode of arrival: ambulatory Limitations: no limitations - History of Present Illness Initial comments: This is a 27-year-old male presents emergency Department complaining of some drainage from his left eye as well as a very red left eye. Patient states it started yesterday and has gotten a little bit worse today. Patient denies any blurred vision. Patient denies any pain. Patient states he is somewhat itchy. Patient denies any recent fever chills or cough. Patient denies sore throat or any ear pain. - Related Data Home Medications Medication Instructions Recorded Confirmed Divalproex ER [Depakote ER] 1,000 mg PO BID 10/20/16 08/20/17 Fenofibrate 160 mg PO DAILY 05/11/17 08/20/17 Fluticasone Nasal [place] [Flonase 1 spray EA NOSTRIL DAILY 05/11/17 08/20/17 Nasal [place]] cloNIDine HCL [Catapres] 0.1 mg PO HS 05/11/17 08/20/17 Lisinopril [Zestril] 5 mg PO DAILY 07/11/17 08/20/17 Albuterol Inhaler [Ventolin Hfa 1 - 2 puff INHALATION RT-Q4H PRN 07/13/17 Inhaler] Loratadine [Claritin] 10 mg PO DAILY 08/20/17 08/20/17 Pantoprazole [Protonix] 40 mg PO DAILY 08/20/17 08/20/17 diphenhydrAMINE [Benadryl] 50 mg PO HS 08/20/17 08/20/17 fluPHENAZine DECANOATE [Prolixin 25 mg IM Q7D 08/20/17 08/20/17 Decanoate] Allergies Allergy/AdvReac Type Severity Reaction Status Date / Time bee venom protein (honey bee) Allergy Unknown Verified 08/20/17 19:55 Review of Systems ROS Statement: Those systems with pertinent positive or pertinent negative responses have been documented in the HPI. ROS Other: All systems not noted in ROS Statement are negative. Past Medical History Past Medical History: Asthma, Seizure Disorder Additional Past Medical History / Comment(s): Pre diabetic History of Any Multi-Drug Resistant Organisms: None Reported Past Surgical History: No Surgical Hx Reported Past Psychological History: ADD/ADHD, Anxiety, Bipolar, Depression, Schizophrenia Smoking Status: Current every day smoker Past Alcohol Use History: None Reported Past Drug Use History: None Reported General Exam - General Exam Comments Initial Comments: GENERAL Patient is well-developed and well-nourished. Patient is in mild distress. EYES Patient's pupils are equal and round. Extraocular motion is intact. Patient has very injected conjunctiva. Patient also has some drainage out of the left eye. Patient's upper eyelid is mildly swollen. SKIN Unremarkable NEURO The patient is alert and oriented 3 PYSCH Patient has normal interpersonal interactions. MUSCULOSKELETAL All 4 extremities have full range of motion Limitations: no limitations Course Vital Signs 08/20/17 19:37 Temperature 99 F Pulse Rate 80 Respiratory 18 Rate Blood Pressure 126/83 O2 Sat by Pulse 97 Oximetry Disposition Clinical Impression: Conjunctivitis Disposition: HOME SELF-CARE Condition: Good Instructions: Conjunctivitis (ED) Is patient prescribed a controlled substance at d/c from ED?: No Referrals: [facility] [Primary Care Provider] - 1-2 days Time of Disposition: 20:24
[2017-08-21] MEDS ORDERED: TOBRAMYCIN 0.3% OPHTH DROPS 5 ML BTL LEFT EYE SCH
== END 2017-08-20 20:45 | disposition home or self-care (01) ==
LOC: EC 19:36
DX: H10.9 Unspecified conjunctivitis (principal); J45.909 Unspecified asthma, uncomplicated; G40.909 Epilepsy, unspecified, not intractable, without status epilepticus; F31.9 Bipolar disorder, unspecified; F20.9 Schizophrenia, unspecified; F90.9 Attention-deficit hyperactivity disorder, unspecified type; F41.9 Anxiety disorder, unspecified; F17.200 Nicotine dependence, unspecified, uncomplicated; Z79.51 Long term (current) use of inhaled steroids; Z79.899 Other long term (current) drug therapy; Z91.030 Bee allergy status
CPT/HCPCS: 99283

== ENCOUNTER 2017-09-18 20:33 | Emergency (ER) | payer OTHER ==
[2017-09-18 20:53] VITALS: BP 120/80; PULSE 80; RESP 18; TEMP 98.2
--- NOTE | 2017-09-18 22:30 | ED ---
General Adult HPI - General Source: patient Mode of arrival: ambulatory Limitations: no limitations <Maverick Ritter - Last Filed: 09/18/17 22:29> <Robert Mann - Last Filed: 09/19/17 01:41> - General Chief complaint: Psychiatric Symptoms Stated complaint: Mental Health Time Seen by Provider: 09/18/17 20:55 - History of Present Illness Initial comments: Patient was originally seen by Dr. Ritter. Patient reevaluated by myself, Dr. Mann. Patient resting comfortably in bed. Patient states he is here because he does not have his medications. Patient was seen earlier in the day by [facility]. They state patient should have his medication and they're trying to figure out why the patient does not. Patient usually gets medications given to him weekly. Patient has no other complaints. Patient denies any suicidal or homicidal thoughts. Patient denies any physical complaints. (Robert Mann) - Related Data Home Medications Medication Instructions Recorded Confirmed Divalproex ER [Depakote ER] 1,000 mg PO BID 10/20/16 09/18/17 Fenofibrate 160 mg PO DAILY 05/11/17 09/18/17 Fluticasone Nasal [place] [Flonase 1 spray EA NOSTRIL DAILY 05/11/17 09/18/17 Nasal [place]] cloNIDine HCL [Catapres] 0.1 mg PO HS 05/11/17 09/18/17 Lisinopril [Zestril] 5 mg PO DAILY 07/11/17 09/18/17 Albuterol Inhaler [Ventolin Hfa 1 - 2 puff INHALATION RT-Q4H PRN 07/13/17 Inhaler] Loratadine [Claritin] 10 mg PO DAILY 08/20/17 09/18/17 Pantoprazole [Protonix] 40 mg PO DAILY 08/20/17 09/18/17 diphenhydrAMINE [Benadryl] 50 mg PO HS 08/20/17 09/18/17 fluPHENAZine DECANOATE [Prolixin 25 mg IM Q7D 08/20/17 09/18/17 Decanoate] metFORMIN HCL [Glucophage] 250 mg PO HS 09/18/17 09/18/17 metFORMIN HCL [Glucophage] 500 mg PO QAM 09/18/17 09/18/17 Allergies Allergy/AdvReac Type Severity Reaction Status Date / Time bee venom protein (honey bee) Allergy Unknown Verified 09/18/17 21:00 Review of Systems ROS Other: All systems not noted in ROS Statement are negative. <Maverick Ritter - Last Filed: 09/18/17 22:29> ROS Other: All systems not noted in ROS Statement are negative. <Robert Mann - Last Filed: 09/19/17 01:41> ROS Statement: Those systems with pertinent positive or pertinent negative responses have been documented in the HPI. Past Medical History Past Medical History: Asthma, Seizure Disorder Additional Past Medical History / Comment(s): Pre diabetic History of Any Multi-Drug Resistant Organisms: None Reported Past Surgical History: No Surgical Hx Reported Past Psychological History: ADD/ADHD, Anxiety, Bipolar, Depression, Schizophrenia Smoking Status: Current every day smoker Past Alcohol Use History: None Reported Past Drug Use History: None Reported <Maverick Ritter - Last Filed: 09/18/17 22:29> General Exam Limitations: no limitations <Maverick Ritter - Last Filed: 09/18/17 22:29> General appearance: alert, in no apparent distress Head exam: Present: atraumatic Eye exam: Present: normal appearance Respiratory exam: Present: normal lung sounds bilaterally Cardiovascular Exam: Present: regular rate, normal rhythm Extremities exam: Present: normal inspection Neurological exam: Present: alert Psychiatric exam: Present: normal affect, normal mood. Absent: suicidal ideation Skin exam: Present: normal color <Robert Mann - Last Filed: 09/19/17 01:41> Vital Signs 09/18/17 20:50 Temperature 98.2 F Pulse Rate 80 Respiratory 18 Rate Blood Pressure 120/80 O2 Sat by Pulse 100 Oximetry Medical Decision Making <Maverick Ritter - Last Filed: 09/18/17 22:29> <Robert Mann - Last Filed: 09/19/17 01:41> - Medical Decision Making Patient was seen by mental health services who recommends discharge. Patient will be seen tomorrow by [facility]. They do request considering giving patient Depakote 500 mg, Protonix, and metformin which patient normally takes. Accu- Chek is 108 and metformin will be held at this time. (Robert Mann) - Lab Data Lab Results 09/19/17 09/19/17 Range/Units 00:30 01:28 POC Glucose (mg/dL) 108 H (75-99) mg/dL POC Glu Citrix Lead ID Justine Jackson Urine Opiates Screen Not Detected (NotDetected) Ur Oxycodone Screen Not Detected (NotDetected) Urine Methadone Screen Not Detected (NotDetected) Ur Propoxyphene Screen Not Detected (NotDetected) Ur Barbiturates Screen Not Detected (NotDetected) U Tricyclic Antidepress Not Detected (NotDetected) Ur Phencyclidine Scrn Not Detected (NotDetected) Ur Amphetamines Screen Not Detected (NotDetected) U Methamphetamines Scrn Not Detected (NotDetected) U Benzodiazepines Scrn Not Detected (NotDetected) Urine Cocaine Screen Not Detected (NotDetected) U Marijuana (THC) Screen Not Detected (NotDetected) Disposition <Maverick Ritter - Last Filed: 09/18/17 22:29> Is patient prescribed a controlled substance at d/c from ED?: No Time of Disposition: 01:41 <Robert Mann - Last Filed: 09/19/17 01:41> Clinical Impression: Medication management Disposition: HOME SELF-CARE Condition: Stable Additional Instructions: Please follow-up with [facility] tomorrow as planned. Please also follow-up to primary care physician in the next day or 2 for recheck. Return for thoughts of self-harm or worsening symptoms or other concerns. Use medications as directed. Referrals: [facility] [Primary Care Provider] - 1-2 days
[2017-09-19 00:53] LABS: Amphetamine Screen,Urine Not Detected (NotDetected); Barbiturate Screen,Urine Not Detected (NotDetected); Benzodiazepines Screen,Urine Not Detected (NotDetected); Cocaine Screen,Urine Not Detected (NotDetected); Methadone Screen, Urine Not Detected (NotDetected); Opiate Screen,Urine Not Detected (NotDetected); Oxycodone Screen, Urine Not Detected (NotDetected); Phencyclidine Screen,Urine Not Detected (NotDetected); Tricyclic Antidepressant,Urine Not Detected (NotDetected); Urn Cannabinoid Scrn Not Detected (NotDetected)
[2017-09-19 01:29] LABS: Glucose,Whole Blood 108 mg/dL (75-99)
[2017-09-19] MEDS ORDERED: DIVALPROEX ER 500 MG TAB.ER.24H PO STA (01:37)
[2017-09-19] MEDS ORDERED: PANTOPRAZOLE 40 MG TABLET PO STA (01:37)
== END 2017-09-19 02:00 | disposition home or self-care (01) ==
LOC: EC 20:33
DX: Z51.81 Encounter for therapeutic drug level monitoring (principal); J45.909 Unspecified asthma, uncomplicated; G40.909 Epilepsy, unspecified, not intractable, without status epilepticus; F90.9 Attention-deficit hyperactivity disorder, unspecified type; F41.9 Anxiety disorder, unspecified; F20.9 Schizophrenia, unspecified; F17.200 Nicotine dependence, unspecified, uncomplicated; Z79.84 Long term (current) use of oral hypoglycemic drugs; Z79.899 Other long term (current) drug therapy; Z91.030 Bee allergy status
CPT/HCPCS: 36415; 80306; 82075; 99284

== ENCOUNTER 2017-11-22 15:32 | Emergency (ER) | payer OTHER ==
[2017-11-22 15:38] VITALS: BP 121/73; PULSE 86; RESP 18; TEMP 98.4
--- NOTE | 2017-11-22 15:52 | ED ---
URI HPI - General Chief Complaint: Upper Respiratory Infection Stated Complaint: Cough/congestion Time Seen by Provider: 11/22/17 15:39 Source: patient, RN notes reviewed Mode of arrival: ambulatory Limitations: no limitations - History of Present Illness Initial Comments: This is a 27-year-old male who presents to the emergency department with chief complaint of cough. Patient states that he has had a productive cough of green sputum for the past "few weeks." States that the cough is hacking and causes him to vomit at times. He also reports sneezing, sore throat. He states he is a current, every day smoker. He smokes one pack per day. Patient states he is fully up-to-date with vaccinations. Denies fevers or chills, difficulty breathing, abdominal pain, nausea, diarrhea. - Related Data Home Medications Medication Instructions Recorded Confirmed Divalproex ER [Depakote ER] 1,000 mg PO BID 10/20/16 09/18/17 Fenofibrate 160 mg PO DAILY 05/11/17 09/18/17 Fluticasone Nasal [place] [Flonase 1 spray EA NOSTRIL DAILY 05/11/17 09/18/17 Nasal [place]] cloNIDine HCL [Catapres] 0.1 mg PO HS 05/11/17 09/18/17 Lisinopril [Zestril] 5 mg PO DAILY 07/11/17 09/18/17 Albuterol Inhaler [Ventolin Hfa 1 - 2 puff INHALATION RT-Q4H PRN 07/13/17 Inhaler] Loratadine [Claritin] 10 mg PO DAILY 08/20/17 09/18/17 Pantoprazole [Protonix] 40 mg PO DAILY 08/20/17 09/18/17 diphenhydrAMINE [Benadryl] 50 mg PO HS 08/20/17 09/18/17 fluPHENAZine DECANOATE [Prolixin 25 mg IM Q7D 08/20/17 09/18/17 Decanoate] metFORMIN HCL [Glucophage] 250 mg PO HS 09/18/17 09/18/17 metFORMIN HCL [Glucophage] 500 mg PO QAM 09/18/17 09/18/17 Previous Rx's Medication Instructions Recorded guaiFENesin [Mucinex] 600 mg PO Q12HR PRN #10 tablet 11/22/17 Allergies Allergy/AdvReac Type Severity Reaction Status Date / Time bee venom protein (honey bee) Allergy Unknown Verified 11/22/17 15:34 Review of Systems ROS Statement: Those systems with pertinent positive or pertinent negative responses have been documented in the HPI. ROS Other: All systems not noted in ROS Statement are negative. Past Medical History Past Medical History: Asthma, Seizure Disorder Additional Past Medical History / Comment(s): Pre- diabetic History of Any Multi-Drug Resistant Organisms: None Reported Past Surgical History: No Surgical Hx Reported Past Psychological History: ADD/ADHD, Anxiety, Bipolar, Depression, Schizophrenia Smoking Status: Current every day smoker Past Alcohol Use History: None Reported Past Drug Use History: None Reported General Exam - General Exam Comments Initial Comments: General: Awake and alert, well-developed; in no apparent distress. Does not appear acutely ill. HEENT: Head atraumatic, normocephalic. Pupils are equal, round and reactive to light. Extraocular movements intact. Oropharynx moist without erythema or exudate. Bilateral TMs pearly without effusion. Neck: Supple. Normal ROM. Cardiovascular: Regular rate and rhythm. No murmurs, rubs or gallops. Chest symmetrical. Respiratory: Lungs clear to auscultation bilaterally. No wheezes, rales or rhonchi. Normal respiratory effort with no use of accessory muscles. Musculoskeletal: Normal ROM, no tenderness bilateral upper and lower extremities. Ambulating normally. Skin: [place], warm and dry without rashes or lesions. Neurological: Alert and oriented x3. CN II-XII grossly intact. Speech is fluent and answers are appropriate. No focal neuro deficits. Limitations: no limitations Course Vital Signs 11/22/17 15:34 Temperature 98.4 F Pulse Rate 86 Respiratory 18 Rate Blood Pressure 121/73 O2 Sat by Pulse 96 Oximetry Medical Decision Making - Medical Decision Making This is a 27-year-old male who presents to the emergency department with chief complaint of cough. Patient is a current, every day smoker. Reports cough is hacking and has been present for the past few weeks. Denies fevers. Lungs are clear to auscultation bilaterally. Chest x-ray reveals no acute abnormalities. Patient likely suffering from upper respiratory infection. Recommend symptomatic treatment. Vitals are stable and patient is in no acute distress. He will be discharged home at this time. He is in agreement and voices understanding. All questions were answered. - Radiology Data Radiology results: report reviewed, image reviewed Chest x-ray impression: No acute process. Disposition Clinical Impression: Upper respiratory infection Disposition: HOME SELF-CARE Condition: Good Instructions: Upper Respiratory Infection (ED) Additional Instructions: Please follow up with primary care provider within 1-2 days. Return to emergency department if symptoms should worsen or any concerns arise. Prescriptions: guaiFENesin [Mucinex] 600 mg PO Q12HR PRN #10 tablet PRN Reason: Cough Is patient prescribed a controlled substance at d/c from ED?: No Referrals: [facility] [Primary Care Provider] - 1-2 days Time of Disposition: 16:07
--- NOTE | 2017-11-22 16:00 | XR ---
EXAMINATION TYPE: XR chest 2V DATE OF EXAM: 11/22/2017 COMPARISON: 05/11/2017 TECHNIQUE: PA and lateral views submitted. HISTORY: Cough FINDINGS: The lungs are clear and there is no pneumothorax, pleural effusion, or focal pneumonia. IMPRESSION: 1. No acute process.
== END 2017-11-22 16:11 | disposition home or self-care (01) ==
LOC: EC 15:32
DX: J06.9 Acute upper respiratory infection, unspecified (principal); J45.909 Unspecified asthma, uncomplicated; G40.909 Epilepsy, unspecified, not intractable, without status epilepticus; F20.9 Schizophrenia, unspecified; F31.9 Bipolar disorder, unspecified; F17.210 Nicotine dependence, cigarettes, uncomplicated; Z91.018 Allergy to other foods; Z79.51 Long term (current) use of inhaled steroids; Z79.84 Long term (current) use of oral hypoglycemic drugs; Z79.899 Other long term (current) drug therapy
CPT/HCPCS: 71046; 99283

== ENCOUNTER 2017-11-30 18:52 | Emergency (ER) | payer OTHER ==
[2017-11-30 19:10] VITALS: BP 145/89; PULSE 67; RESP 16; TEMP 98.5
--- NOTE | 2017-11-30 19:44 | ED ---
ENT HPI - General Chief complaint: ENT Stated complaint: rt ear pain Time Seen by Provider: 11/30/17 19:35 Source: patient, RN notes reviewed Mode of arrival: ambulatory Limitations: no limitations - History of Present Illness Initial comments: 27-year-old male presents emergency Department chief complaint of right ear pain 2 hours. Patient states he woke up with the pain. Patient's had recent URI symptoms. Patient denies any drainage no trauma states he doesn't use any Q -tips or any other foreign objects. Patient denies any other complaints at this time. - Related Data Home Medications Medication Instructions Recorded Confirmed Divalproex ER [Depakote ER] 1,000 mg PO BID 10/20/16 09/18/17 Fenofibrate 160 mg PO DAILY 05/11/17 09/18/17 Fluticasone Nasal [place] [Flonase 1 spray EA NOSTRIL DAILY 05/11/17 09/18/17 Nasal [place]] cloNIDine HCL [Catapres] 0.1 mg PO HS 05/11/17 09/18/17 Lisinopril [Zestril] 5 mg PO DAILY 07/11/17 09/18/17 Albuterol Inhaler [Ventolin Hfa 1 - 2 puff INHALATION RT-Q4H PRN 07/13/17 Inhaler] Loratadine [Claritin] 10 mg PO DAILY 08/20/17 09/18/17 Pantoprazole [Protonix] 40 mg PO DAILY 08/20/17 09/18/17 diphenhydrAMINE [Benadryl] 50 mg PO HS 08/20/17 09/18/17 fluPHENAZine DECANOATE [Prolixin 25 mg IM Q7D 08/20/17 09/18/17 Decanoate] metFORMIN HCL [Glucophage] 250 mg PO HS 09/18/17 09/18/17 metFORMIN HCL [Glucophage] 500 mg PO QAM 09/18/17 09/18/17 Previous Rx's Medication Instructions Recorded guaiFENesin-DM 100-10MG/5ML 1 - 2 tsp PO Q4-6H PRN #4 oz 11/22/17 [Robitussin DM] Ofloxacin 0.3% Otic Soln [Floxin 10 drops BOTH EARS BID #10 ml 11/30/17 0.3% Otic Soln] Allergies Allergy/AdvReac Type Severity Reaction Status Date / Time bee venom protein (honey bee) Allergy Unknown Verified 11/30/17 19:10 Review of Systems ROS Statement: Those systems with pertinent positive or pertinent negative responses have been documented in the HPI. ROS Other: All systems not noted in ROS Statement are negative. Past Medical History Past Medical History: Asthma, Seizure Disorder Additional Past Medical History / Comment(s): Pre- diabetic History of Any Multi-Drug Resistant Organisms: None Reported Past Surgical History: No Surgical Hx Reported Past Psychological History: ADD/ADHD, Anxiety, Bipolar, Depression, Schizophrenia Smoking Status: Current every day smoker Past Alcohol Use History: None Reported Past Drug Use History: None Reported General Exam Limitations: no limitations General appearance: alert, in no apparent distress Head exam: Present: atraumatic, normocephalic, normal inspection ENT exam: Present: normal oropharynx, mucous membranes moist, TM's normal bilaterally. Absent: normal external ear exam (Right EAC erythematous) Neck exam: Present: normal inspection. Absent: tenderness, meningismus, lymphadenopathy Respiratory exam: Present: normal lung sounds bilaterally. Absent: respiratory distress, wheezes, rales, rhonchi, stridor Cardiovascular Exam: Present: regular rate, normal rhythm, normal heart sounds. Absent: systolic murmur, diastolic murmur, rubs, gallop, clicks Course Vital Signs 11/30/17 19:07 Temperature 98.5 F Pulse Rate 67 Respiratory 16 Rate Blood Pressure 145/89 O2 Sat by Pulse 98 Oximetry Medical Decision Making - Medical Decision Making 27-year-old male presented for right ear pain. Patient has a right otitis externa. Patient was started on ofloxacin return parameters were discussed. Disposition Clinical Impression: Otitis externa Disposition: HOME SELF-CARE Condition: Stable Instructions: Earache (ED) Additional Instructions: Please return to the Emergency Department if symptoms worsen or any other concerns. Prescriptions: Ofloxacin 0.3% Otic Soln [Floxin 0.3% Otic Soln] 10 drops BOTH EARS BID #10 ml Is patient prescribed a controlled substance at d/c from ED?: No Referrals: [facility] [Primary Care Provider] - 1-2 days Time of Disposition: 19:44
== END 2017-11-30 19:51 | disposition home or self-care (01) ==
LOC: EC 18:52
DX: H60.91 Unspecified otitis externa, right ear (principal); G40.909 Epilepsy, unspecified, not intractable, without status epilepticus; J45.909 Unspecified asthma, uncomplicated; F20.9 Schizophrenia, unspecified; F90.9 Attention-deficit hyperactivity disorder, unspecified type; F31.9 Bipolar disorder, unspecified; F41.9 Anxiety disorder, unspecified; E11.9 Type 2 diabetes mellitus without complications; F17.200 Nicotine dependence, unspecified, uncomplicated; Z79.51 Long term (current) use of inhaled steroids; Z79.84 Long term (current) use of oral hypoglycemic drugs; Z79.899 Other long term (current) drug therapy; Z91.030 Bee allergy status
CPT/HCPCS: 99282

== ENCOUNTER 2017-12-29 18:21 | Emergency (ER) | payer OTHER ==
[2017-12-29] MEDS ORDERED: ONDANSETRON 4 MG/2 ML VIAL IVP STA (18:44)
[2017-12-29] MEDS ORDERED: SODIUM CHLORIDE 0.9% 1,000 ML IV STA (18:44)
[2017-12-29] MEDS ORDERED: SODIUM CHLORIDE 0.9% 500 ML 500 ML IV STA (18:44)
--- NOTE | 2017-12-29 18:49 | ED ---
Nausea/Vomiting/Diarrhea HPI - General Source: patient, EMS, RN notes reviewed Mode of arrival: EMS Limitations: no limitations <Fer Dockery - Last Filed: 12/29/17 20:10> <Nancy Anna - Last Filed: 12/30/17 23:34> - General Chief complaint: Nausea/Vomiting/Diarrhea Stated complaint: Nausea Time Seen by Provider: 12/29/17 18:24 - History of Present Illness Initial comments: This a 27-year-old male presents emergency Department chief complaint of nausea vomiting. Patient presents via EMS. Patient initially refused IV and antiemetics. Patient states he has mild abdominal pain but only primary complaint of nausea vomiting last 3 days. Denies any hematemesis or coffee- ground emesis. Denies any fever, chills, URI symptoms, diarrhea constipation. Patient has no dysuria no hematuria. Patient denies any sick contacts. (Fer Dockery) - Related Data Home Medications Medication Instructions Recorded Confirmed Divalproex ER [Depakote ER] 1,000 mg PO BID 10/20/16 11/30/17 Fenofibrate 160 mg PO DAILY 05/11/17 11/30/17 Fluticasone Nasal [place] [Flonase 1 spray EA NOSTRIL DAILY 05/11/17 11/30/17 Nasal [place]] cloNIDine HCL [Catapres] 0.1 mg PO HS 05/11/17 11/30/17 Lisinopril [Zestril] 5 mg PO DAILY 07/11/17 11/30/17 Albuterol Inhaler [Ventolin Hfa 1 - 2 puff INHALATION RT-Q4H PRN 07/13/17 Inhaler] Loratadine [Claritin] 10 mg PO DAILY 08/20/17 11/30/17 Pantoprazole [Protonix] 40 mg PO DAILY 08/20/17 11/30/17 diphenhydrAMINE [Benadryl] 50 mg PO HS 08/20/17 11/30/17 fluPHENAZine DECANOATE [Prolixin 25 mg IM Q7D 08/20/17 11/30/17 Decanoate] metFORMIN HCL [Glucophage] 250 mg PO HS 09/18/17 11/30/17 metFORMIN HCL [Glucophage] 500 mg PO QAM 09/18/17 11/30/17 Varenicline [Chantix Continuing 1 mg PO BID 11/30/17 11/30/17 Pack] Previous Rx's Medication Instructions Recorded guaiFENesin-DM 100-10MG/5ML 1 - 2 tsp PO Q4-6H PRN #4 oz 11/22/17 [Robitussin DM] Ofloxacin 0.3% Otic Soln [Floxin 10 drops BOTH EARS BID #10 ml 11/30/17 0.3% Otic Soln] Ondansetron Odt [Zofran Odt] 4 mg PO Q8HR PRN #10 tab 12/29/17 Allergies Allergy/AdvReac Type Severity Reaction Status Date / Time bee venom protein (honey bee) Allergy Unknown Verified 11/30/17 19:46 Review of Systems ROS Other: All systems not noted in ROS Statement are negative. <Fer Dockery - Last Filed: 12/29/17 20:10> ROS Other: All systems not noted in ROS Statement are negative. <Nancy Anna - Last Filed: 12/30/17 23:34> ROS Statement: Those systems with pertinent positive or pertinent negative responses have been documented in the HPI. Past Medical History Past Medical History: Asthma, Seizure Disorder Additional Past Medical History / Comment(s): Pre- diabetic History of Any Multi-Drug Resistant Organisms: None Reported Past Surgical History: No Surgical Hx Reported Past Psychological History: ADD/ADHD, Anxiety, Bipolar, Depression, Schizophrenia Smoking Status: Current every day smoker Past Alcohol Use History: None Reported Past Drug Use History: None Reported <Fer Dockery - Last Filed: 12/29/17 20:10> General Exam Limitations: no limitations General appearance: alert, in no apparent distress Head exam: Present: atraumatic, normocephalic, normal inspection Eye exam: Present: normal appearance, PERRL, EOMI. Absent: scleral icterus, conjunctival injection, periorbital swelling ENT exam: Present: normal exam, normal oropharynx, mucous membranes moist, TM's normal bilaterally Neck exam: Present: normal inspection, full ROM. Absent: tenderness, meningismus, lymphadenopathy Respiratory exam: Present: normal lung sounds bilaterally. Absent: respiratory distress, wheezes, rales, rhonchi, stridor Cardiovascular Exam: Present: regular rate, normal rhythm, normal heart sounds. Absent: systolic murmur, diastolic murmur, rubs, gallop, clicks GI/Abdominal exam: Present: soft, tenderness (Minimal epigastric), normal bowel sounds. Absent: distended, guarding, rebound, rigid Neurological exam: Present: alert, oriented X3, CN II-XII intact Skin exam: Present: warm, dry, intact, normal color. Absent: rash <Fer Dockery - Last Filed: 12/29/17 20:10> Course <Fer Dockery - Last Filed: 12/29/17 20:10> <Nancy Anna - Last Filed: 12/30/17 23:34> Vital Signs 12/29/17 12/29/17 12/29/17 18:24 19:38 20:25 Temperature 99 F 98.5 F Pulse Rate 84 89 90 Respiratory 16 18 18 Rate Blood Pressure 120/78 120/70 115/70 O2 Sat by Pulse 96 95 98 Oximetry - Reevaluation(s) Reevaluation #1: 12/29/17 20:10 Patient updated in reevaluated at this time. Patient states he feels 100% better. Patient is requesting to be discharged. I days. I have a urinalysis at this time he states he has no symptoms and again requests discharge. (Fer Dockery) Medical Decision Making - Lab Data Result diagrams: 12/29/17 18:50 12/29/17 18:50 <Fer Dockery - Last Filed: 12/29/17 20:10> - Lab Data Result diagrams: 12/29/17 18:50 12/29/17 18:50 <Nancy Anna - Last Filed: 12/30/17 23:34> - Medical Decision Making I was available for consultation in the emergency department. The history and physical exam were done by the Midlevel Provider. Medical decision making was done by the Midlevel Provider. The Midlevel Provider did not contact me for this patient's care. I was not directly involved in this patient's care. (Nancy Anna) - Lab Data Lab Results 12/29/17 12/29/17 Range/Units 18:50 18:50 WBC 7.8 (3.8-10.6) k/uL RBC 6.06 H (4.30-5.90) m/uL Hgb 17.6 H (13.0-17.5) gm/dL Hct 53.2 H (39.0-53.0) % MCV 87.8 (80.0-100.0) fL MCH 29.0 (25.0-35.0) pg MCHC 33.1 (31.0-37.0) g/dL RDW 13.1 (11.5-15.5) % Plt Count 184 (150-450) k/uL Neutrophils % 56 % Lymphocytes % 36 % Monocytes % 5 % Eosinophils % 1 % Basophils % 0 % Neutrophils # 4.4 (1.3-7.7) k/uL Lymphocytes # 2.8 (1.0-4.8) k/uL Monocytes # 0.4 (0-1.0) k/uL Eosinophils # 0.1 (0-0.7) k/uL Basophils # 0.0 (0-0.2) k/uL Sodium 140 (137-145) mmol/L Potassium 4.4 (3.5-5.1) mmol/L Chloride 106 (98-107) mmol/L Carbon Dioxide 21 L (22-30) mmol/L Anion Gap 13 mmol/L BUN 13 (9-20) mg/dL Creatinine 0.86 (0.66-1.25) mg/dL Est GFR (CKD-EPI)AfAm >90 (>60 ml/min/1.73 sqM) Est GFR (CKD-EPI)NonAf >90 (>60 ml/min/1.73 sqM) Glucose 100 H (74-99) mg/dL Calcium 10.2 (8.4-10.2) mg/dL Total Bilirubin 0.6 (0.2-1.3) mg/dL AST 17 (17-59) U/L ALT 21 (21-72) U/L Alkaline Phosphatase 30 L (38-126) U/L Total Protein 7.7 (6.3-8.2) g/dL Albumin 4.4 (3.5-5.0) g/dL Amylase 72 (30-110) U/L Lipase 68 (23-300) U/L Disposition Is patient prescribed a controlled substance at d/c from ED?: No Time of Disposition: 20:11 <Dedoe,Fer M - Last Filed: 12/29/17 20:10> <Nancy Anna P - Last Filed: 12/30/17 23:34> Clinical Impression: Nausea & vomiting Disposition: HOME SELF-CARE Condition: Stable Instructions: Acute Nausea and Vomiting (ED) Additional Instructions: Please return to the Emergency Department if symptoms worsen or any other concerns. Prescriptions: Ondansetron Odt [Zofran Odt] 4 mg PO Q8HR PRN #10 tab PRN Reason: Nausea Referrals: [facility] [Primary Care Provider] - 1-2 days
[2017-12-29 19:07] LABS: Basophils % (A) 0 %; Eosinophils # (A) 0.1 k/uL (0-0.7); Eosinophils % (A) 1 %; HCT 53.2 % (39.0-53.0); HGB 17.6 gm/dL (13.0-17.5); Lymphocytes # (A) 2.8 k/uL (1.0-4.8); Lymphocytes % (A) 36 %; MCHC 33.1 g/dL (31.0-37.0); MCV 87.8 fL (80.0-100.0); Mean Platelet Volume 8.8; Monocytes # (A) 0.4 k/uL (0-1.0); Monocytes % (A) 5 %; Neutrophils # (A) 4.4 k/uL (1.3-7.7); Neutrophils % (A) 56 %; Platelet Count 184 k/uL (150-450); RBC 6.06 m/uL (4.30-5.90); RDW 13.1 % (11.5-15.5); WBC 7.8 k/uL (3.8-10.6)
[2017-12-29 19:16] LABS: ALT 21 U/L (21-72); AST 17 U/L (17-59); Albumin 4.4 g/dL (3.5-5.0); Alkaline Phosphatase 30 U/L (38-126); Amylase 72 U/L (30-110); Anion Gap 13 mmol/L; Blood Urea Nitrogen 13 mg/dL (9-20); Calcium 10.2 mg/dL (8.4-10.2); Carbon Dioxide 21 mmol/L (22-30); Chloride 106 mmol/L (98-107); Glucose 100 mg/dL (74-99); Lipase 68 U/L (23-300); Potassium 4.4 mmol/L (3.5-5.1); Sodium 140 mmol/L (137-145); Total Bilirubin 0.6 mg/dL (0.2-1.3); Total Protein 7.7 g/dL (6.3-8.2)
[2017-12-29 19:38] VITALS: RESP 18
[2017-12-29 20:26] VITALS: BP 115/70; PULSE 90; TEMP 98.5
== END 2017-12-29 20:27 | disposition home or self-care (01) ==
LOC: EC 18:21
DX: R11.2 Nausea with vomiting, unspecified (principal); R10.9 Unspecified abdominal pain; J45.909 Unspecified asthma, uncomplicated; G40.909 Epilepsy, unspecified, not intractable, without status epilepticus; F20.9 Schizophrenia, unspecified; F17.200 Nicotine dependence, unspecified, uncomplicated; Z91.018 Allergy to other foods; Z79.51 Long term (current) use of inhaled steroids; Z79.84 Long term (current) use of oral hypoglycemic drugs; Z79.899 Other long term (current) drug therapy
CPT/HCPCS: 36415; 80053; 82150; 83690; 85025; 99284; 96374; 96361; J2405

== ENCOUNTER 2018-01-04 10:06 | Emergency (ER) | payer OTHER ==
[2018-01-04 10:19] VITALS: BP 122/78; PULSE 77; RESP 16; TEMP 98.4
[2018-01-04] MEDS ORDERED: TOBRAMYCIN 0.3% OPHTH DROPS 5 ML BTL RIGHT EYE STA (12:59)
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
== END 2018-01-04 13:25 | disposition home or self-care (01) ==
LOC: EC 10:06
DX: S05.01XA Injury of conjunctiva and corneal abrasion without foreign body, right eye, initial encounter (principal); J45.909 Unspecified asthma, uncomplicated; G40.909 Epilepsy, unspecified, not intractable, without status epilepticus; F17.200 Nicotine dependence, unspecified, uncomplicated; Z79.51 Long term (current) use of inhaled steroids; Z79.84 Long term (current) use of oral hypoglycemic drugs; Z79.899 Other long term (current) drug therapy; Z91.030 Bee allergy status
CPT/HCPCS: 99283

== ENCOUNTER → 2018-01-21 | Outpatient (CLI) | payer OTHER | LOC: LABWHC1 09:09 | PROVIDERS: ATTEND Psychiatry & Neurology Psychiatry | DX: Z51.81 Encounter for therapeutic drug level monitoring (principal); Z79.899 Other long term (current) drug therapy | CPT/HCPCS: 36415; 80164 ==

== ENCOUNTER 2018-02-15 11:26 | Emergency (ER) | payer OTHER ==
[2018-02-15 11:35] VITALS: BP 122/72; TEMP 98.2
[2018-02-15] MEDS ORDERED: PROPARACAINE 0.5% OPHTH DROPS 15 ML BTL BOTH EYES STA (11:52)
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
[2018-02-15 13:13] VITALS: PULSE 81; RESP 18
== END 2018-02-15 13:00 | disposition home or self-care (01) ==
LOC: EC 11:26
DX: T26.92XA Corrosion of left eye and adnexa, part unspecified, initial encounter (principal); T26.91XA Corrosion of right eye and adnexa, part unspecified, initial encounter; T20.44XA Corrosion of unspecified degree of nose (septum), initial encounter; J45.909 Unspecified asthma, uncomplicated; G40.909 Epilepsy, unspecified, not intractable, without status epilepticus; F31.9 Bipolar disorder, unspecified; F20.9 Schizophrenia, unspecified; F17.200 Nicotine dependence, unspecified, uncomplicated; Z91.018 Allergy to other foods; Z79.51 Long term (current) use of inhaled steroids; Z79.84 Long term (current) use of oral hypoglycemic drugs; Z79.899 Other long term (current) drug therapy; Y08.89XA Assault by other specified means, initial encounter; Y93.89 Activity, other specified
CPT/HCPCS: 99284

== ENCOUNTER 2018-03-12 15:46 | Emergency (ER) | payer OTHER ==
[2018-03-12 15:51] VITALS: BP 132/82; PULSE 87; RESP 18; TEMP 97.8
--- NOTE | 2018-03-12 16:34 | ED ---
General Adult HPI - General Source: patient, RN notes reviewed Mode of arrival: ambulatory Limitations: no limitations <Maverick Ritchie - Last Filed: 03/12/18 16:58> <Maverick Ritter - Last Filed: 03/12/18 17:38> - General Chief complaint: Psychiatric Symptoms Stated complaint: Mental health-needs new medication Time Seen by Provider: 03/12/18 15:50 - History of Present Illness Initial comments: This is a 27-year-old male who comes in stating that he has been having thoughts of hurting his staff at his home. Patient states he doesn't believe is medicines are working and that's why he keeps having these mood swings to the point where he wants to hurt people. Patient states he did not hurt anybody. Patient states he does not want hurt himself in any way. Patient states physically he is been fine he denies any recent illness. Patient denies any chest pain difficulty breathing shortness breath per patient denies abdominal pain patient denies nausea vomiting diarrhea per patient denies any recent fever chills or cough. (Maverick Ritchie) - Related Data Home Medications Medication Instructions Recorded Confirmed Divalproex ER [Depakote ER] 1,000 mg PO BID 10/20/16 03/12/18 Fenofibrate 160 mg PO DAILY 05/11/17 03/12/18 Fluticasone Nasal [place] [Flonase 1 spray EA NOSTRIL DAILY 05/11/17 03/12/18 Nasal [place]] cloNIDine HCL [Catapres] 0.1 mg PO HS 05/11/17 03/12/18 Lisinopril [Zestril] 5 mg PO DAILY 07/11/17 03/12/18 Albuterol Inhaler [Ventolin Hfa 1 - 2 puff INHALATION RT-Q4H PRN 07/13/17 Inhaler] Loratadine [Claritin] 10 mg PO DAILY 08/20/17 03/12/18 Pantoprazole [Protonix] 40 mg PO DAILY 08/20/17 03/12/18 fluPHENAZine DECANOATE [Prolixin 50 mg IM Q7D 08/20/17 03/12/18 Decanoate] metFORMIN HCL [Glucophage] 250 mg PO HS 09/18/17 03/12/18 metFORMIN HCL [Glucophage] 500 mg PO QAM 09/18/17 03/12/18 Varenicline [Chantix Continuing 1 mg PO BID 11/30/17 03/12/18 Pack] Ibuprofen [Motrin] 400 mg PO BID PRN 03/12/18 03/12/18 Triamcinolone 0.5% Cream [Kenalog 1 applic TOPICAL BID 03/12/18 03/12/18 0.5% Cream] Allergies Allergy/AdvReac Type Severity Reaction Status Date / Time bee venom protein (honey bee) Allergy Anaphylaxis Verified 03/12/18 16:04 Review of Systems ROS Other: All systems not noted in ROS Statement are negative. <Maverick Ritchie - Last Filed: 03/12/18 16:58> ROS Other: All systems not noted in ROS Statement are negative. <Maverick Ritter - Last Filed: 03/12/18 17:38> ROS Statement: Those systems with pertinent positive or pertinent negative responses have been documented in the HPI. Past Medical History Past Medical History: Asthma, Seizure Disorder Additional Past Medical History / Comment(s): Pre- diabetic History of Any Multi-Drug Resistant Organisms: None Reported Past Surgical History: No Surgical Hx Reported Past Psychological History: ADD/ADHD, Anxiety, Bipolar, Depression, Schizophrenia Smoking Status: Current every day smoker Past Alcohol Use History: None Reported Past Drug Use History: None Reported <Maverick Ritchie - Last Filed: 03/12/18 16:58> General Exam Limitations: no limitations <Maverick Ritchie - Last Filed: 03/12/18 16:58> <Maverick Ritter - Last Filed: 03/12/18 17:38> - General Exam Comments Initial Comments: GENERAL: Patient is well-developed and well-nourished. Patient is nontoxic and well- hydrated and is in no acute distress. ENT: Neck is soft and supple. No significant lymphadenopathy is noted. Oropharynx is clear. Moist mucous membranes. EYES: The sclera were anicteric and conjunctiva were pink and moist. Extraocular movements were intact and pupils were equal round and reactive to light. Eyelids were unremarkable. PULMONARY: Unlabored respirations. Good breath sounds bilaterally. No audible rales rhonchi or wheezing was noted. CARDIOVASCULAR: There is a regular rate and rhythm without any murmurs gallops or rubs. ABDOMEN: Soft and nontender with normal bowel sounds. SKIN: Skin is clear with no lesions or rashes and otherwise unremarkable. NEUROLOGIC: Patient is alert and oriented x3. Cranial nerves II through XII are grossly intact. Motor and sensory are also intact. Normal speech, volume and content. Symmetrical smile. MUSCULOSKELETAL: Normal extremities with adequate strength and full range of motion. PSYCHIATRIC: Patient states he wants to harm some other staff that he lives with. Patient denies any suicidal homicidal ideations. (Maverick Ritchie) Vital Signs 03/12/18 15:49 Temperature 97.8 F Pulse Rate 87 Respiratory 18 Rate Blood Pressure 132/82 O2 Sat by Pulse 96 Oximetry Medical Decision Making <Maverick Ritchie - Last Filed: 03/12/18 16:58> <Maverick Ritter - Last Filed: 03/12/18 17:38> - Medical Decision Making Dr. Ritter will be taking over the care of this patient at 5 PM (Maverick Ritchie) - Lab Data Lab Results 03/12/18 Range/Units 16:30 Urine Opiates Screen Not Detected (NotDetected) Ur Oxycodone Screen Not Detected (NotDetected) Urine Methadone Screen Not Detected (NotDetected) Ur Propoxyphene Screen Not Detected (NotDetected) Ur Barbiturates Screen Not Detected (NotDetected) U Tricyclic Antidepress Not Detected (NotDetected) Ur Phencyclidine Scrn Not Detected (NotDetected) Ur Amphetamines Screen Not Detected (NotDetected) U Methamphetamines Scrn Not Detected (NotDetected) U Benzodiazepines Scrn Not Detected (NotDetected) Urine Cocaine Screen Not Detected (NotDetected) U Marijuana (THC) Screen Not Detected (NotDetected) Disposition <Maverick Ritchie - Last Filed: 03/12/18 16:58> Is patient prescribed a controlled substance at d/c from ED?: No <Maverick Ritter - Last Filed: 03/12/18 17:38> Clinical Impression: Aggression, Non-compliant patient, Depression Disposition: HOME SELF-CARE Condition: Fair Instructions (If sedation given, give patient instructions): Conduct Disorder ( ED) Referrals: [facility] [Primary Care Provider] - 1-2 days
[2018-03-12 17:03] LABS: Amphetamine Screen,Urine Not Detected (NotDetected); Barbiturate Screen,Urine Not Detected (NotDetected); Benzodiazepines Screen,Urine Not Detected (NotDetected); Cocaine Screen,Urine Not Detected (NotDetected); Methadone Screen, Urine Not Detected (NotDetected); Opiate Screen,Urine Not Detected (NotDetected); Phencyclidine Screen,Urine Not Detected (NotDetected); Tricyclic Antidepressant,Urine Not Detected (NotDetected); Urn Cannabinoid Scrn Not Detected (NotDetected)
[2018-03-12 17:04] LABS: Oxycodone Screen, Urine Not Detected (NotDetected)
[2018-03-12] MEDS ORDERED: IBUPROFEN 400 MG TAB PO STA (17:29)
== END 2018-03-12 17:44 | disposition home or self-care (01) ==
LOC: EC 15:46
DX: F31.30 Bipolar disorder, current episode depressed, mild or moderate severity, unspecified (principal); R45.6 Violent behavior; Z91.14 Patient's other noncompliance with medication regimen; R45.850 Homicidal ideations; J45.909 Unspecified asthma, uncomplicated; G40.909 Epilepsy, unspecified, not intractable, without status epilepticus; F20.9 Schizophrenia, unspecified; F17.200 Nicotine dependence, unspecified, uncomplicated; Z91.018 Allergy to other foods; Z79.51 Long term (current) use of inhaled steroids; Z79.52 Long term (current) use of systemic steroids; Z79.84 Long term (current) use of oral hypoglycemic drugs; Z79.899 Other long term (current) drug therapy
CPT/HCPCS: 80306; 99285

== ENCOUNTER 2018-03-31 20:01 | Emergency (ER) | payer OTHER ==
--- NOTE | 2018-03-31 20:40 | ED ---
General Adult HPI <Woody Diaz - Last Filed: 03/31/18 22:52> - General Source: patient, RN notes reviewed Mode of arrival: ambulatory Limitations: no limitations <Robert Mann - Last Filed: 04/02/18 08:34> - General Chief complaint: Psychiatric Symptoms Stated complaint: Mental Health Time Seen by Provider: 03/31/18 20:34 - History of Present Illness Initial comments: Patient is a pleasant 27-year-old male presenting to the emergency Department with complaints of depression and suicidal thoughts. Patient does have a plan of choking himself. Patient does have a history of previous attempts at self- harm. No homicidal thoughts. Patient is depressed regarding the recently of his grandmother. No physical complaints. No alcohol or street drug use. No hallucinations. (Robert Mann) - Related Data Home Medications Medication Instructions Recorded Confirmed Divalproex ER [Depakote ER] 1,000 mg PO BID 10/20/16 03/31/18 Fenofibrate 160 mg PO DAILY 05/11/17 03/31/18 Fluticasone Nasal [place] [Flonase 1 spray EA NOSTRIL DAILY 05/11/17 03/31/18 Nasal [place]] cloNIDine HCL [Catapres] 0.1 mg PO HS 05/11/17 03/31/18 Lisinopril [Zestril] 5 mg PO DAILY 07/11/17 03/31/18 Albuterol Inhaler [Ventolin Hfa 1 - 2 puff INHALATION RT-Q4H PRN 07/13/17 Inhaler] Loratadine [Claritin] 10 mg PO DAILY 08/20/17 03/31/18 Pantoprazole [Protonix] 40 mg PO DAILY 08/20/17 03/31/18 fluPHENAZine DECANOATE [Prolixin 50 mg IM Q7D 08/20/17 03/31/18 Decanoate] metFORMIN HCL [Glucophage] 250 mg PO HS 09/18/17 03/31/18 metFORMIN HCL [Glucophage] 500 mg PO QAM 09/18/17 03/31/18 Ibuprofen [Motrin] 400 mg PO BID PRN 03/12/18 03/31/18 Allergies Allergy/AdvReac Type Severity Reaction Status Date / Time bee venom protein (honey bee) Allergy Anaphylaxis Verified 03/31/18 20:55 Review of Systems ROS Other: All systems not noted in ROS Statement are negative. <Woody Diaz - Last Filed: 03/31/18 22:52> ROS Other: All systems not noted in ROS Statement are negative. Constitutional: Denies: fever Eyes: Denies: eye pain ENT: Denies: ear pain Respiratory: Denies: cough Cardiovascular: Denies: chest pain Endocrine: Denies: fatigue Gastrointestinal: Denies: abdominal pain Genitourinary: Denies: dysuria Musculoskeletal: Denies: back pain Skin: Denies: rash Neurological: Denies: weakness Psychiatric: Reports: depression, suicidal thoughts. Denies: auditory hallucinations, visual hallucinations, homicidal thoughts <Robert Mann - Last Filed: 04/02/18 08:34> ROS Statement: Those systems with pertinent positive or pertinent negative responses have been documented in the HPI. Past Medical History Past Medical History: Asthma, Seizure Disorder Additional Past Medical History / Comment(s): Pre- diabetic History of Any Multi-Drug Resistant Organisms: None Reported Past Surgical History: No Surgical Hx Reported Past Psychological History: ADD/ADHD, Anxiety, Bipolar, Depression, Schizophrenia Smoking Status: Current every day smoker Past Alcohol Use History: None Reported Past Drug Use History: None Reported <Robert Mann - Last Filed: 04/02/18 08:34> General Exam Limitations: no limitations General appearance: alert, in no apparent distress Head exam: Present: atraumatic Eye exam: Present: normal appearance Neck exam: Present: normal inspection Respiratory exam: Present: normal lung sounds bilaterally Cardiovascular Exam: Present: regular rate, normal rhythm GI/Abdominal exam: Present: soft. Absent: tenderness Extremities exam: Present: normal inspection Neurological exam: Present: alert Psychiatric exam: Present: anxious Skin exam: Present: normal color. Absent: rash <Robert Mann - Last Filed: 04/02/18 08:34> Vital Signs 03/31/18 03/31/18 03/31/18 20:22 23:27 23:57 Temperature 97.5 F L 98.0 F Pulse Rate 75 61 Respiratory 20 16 18 Rate Blood Pressure 121/83 108/56 O2 Sat by Pulse 97 98 Oximetry 04/01/18 08:57 Temperature 98.0 F Pulse Rate 61 Respiratory 18 Rate Blood Pressure 108/56 O2 Sat by Pulse 98 Oximetry Medical Decision Making - Lab Data Result diagrams: 03/31/18 22:53 03/31/18 22:53 <JohnathanRobert - Last Filed: 04/02/18 08:34> - Medical Decision Making I was asked to see this patient for purposes of completing the clinical certification. Patient not able to contract for safety. (Woody Diaz) - Lab Data Lab Results 03/31/18 03/31/18 03/31/18 Range/Units 20:54 22:53 22:53 WBC 8.5 (3.8-10.6) k/uL RBC 5.12 (4.30-5.90) m/uL Hgb 14.8 (13.0-17.5) gm/dL Hct 46.1 (39.0-53.0) % MCV 90.0 (80.0-100.0) fL MCH 28.9 (25.0-35.0) pg MCHC 32.2 (31.0-37.0) g/dL RDW 13.8 (11.5-15.5) % Plt Count 178 (150-450) k/uL Neutrophils % 43 % Lymphocytes % 45 % Monocytes % 7 % Eosinophils % 3 % Basophils % 1 % Neutrophils # 3.6 (1.3-7.7) k/uL Lymphocytes # 3.8 (1.0-4.8) k/uL Monocytes # 0.6 (0-1.0) k/uL Eosinophils # 0.3 (0-0.7) k/uL Basophils # 0.1 (0-0.2) k/uL Sodium 144 (137-145) mmol/L Potassium 4.7 (3.5-5.1) mmol/L Chloride 110 H (98-107) mmol/L Carbon Dioxide 28 (22-30) mmol/L Anion Gap 6 mmol/L BUN 17 (9-20) mg/dL Creatinine 1.04 (0.66-1.25) mg/dL Est GFR (CKD-EPI)AfAm >90 (>60 ml/min/1.73 sqM) Est GFR (CKD-EPI)NonAf >90 (>60 ml/min/1.73 sqM) Glucose 93 (74-99) mg/dL Calcium 10.0 (8.4-10.2) mg/dL Total Bilirubin 0.3 (0.2-1.3) mg/dL AST 20 (17-59) U/L ALT 26 (21-72) U/L Alkaline Phosphatase 25 L (38-126) U/L Total Protein 6.6 (6.3-8.2) g/dL Albumin 3.9 (3.5-5.0) g/dL Urine Opiates Screen Not Detected (NotDetected) Ur Oxycodone Screen Not Detected (NotDetected) Urine Methadone Screen Not Detected (NotDetected) Ur Propoxyphene Screen Not Detected (NotDetected) Ur Barbiturates Screen Not Detected (NotDetected) U Tricyclic Antidepress Not Detected (NotDetected) Ur Phencyclidine Scrn Not Detected (NotDetected) Ur Amphetamines Screen Not Detected (NotDetected) U Methamphetamines Scrn Not Detected (NotDetected) U Benzodiazepines Scrn Not Detected (NotDetected) Urine Cocaine Screen Not Detected (NotDetected) U Marijuana (THC) Screen Detected H (NotDetected) Disposition <Woody Diaz - Last Filed: 03/31/18 22:52> Is patient prescribed a controlled substance at d/c from ED?: No <Robert Mann - Last Filed: 04/02/18 08:34> Clinical Impression: Depression Disposition: TRANSFER TO PSYCH HOSP/UNIT Referrals: [facility] [Primary Care Provider] - 1-2 days
[2018-03-31 21:37] LABS: Amphetamine Screen,Urine Not Detected (NotDetected); Barbiturate Screen,Urine Not Detected (NotDetected); Benzodiazepines Screen,Urine Not Detected (NotDetected); Cocaine Screen,Urine Not Detected (NotDetected); Methadone Screen, Urine Not Detected (NotDetected); Opiate Screen,Urine Not Detected (NotDetected); Oxycodone Screen, Urine Not Detected (NotDetected); Phencyclidine Screen,Urine Not Detected (NotDetected); Tricyclic Antidepressant,Urine Not Detected (NotDetected); Urn Cannabinoid Scrn Detected (NotDetected)
[2018-03-31 23:07] LABS: Basophils # (A) 0.1 k/uL (0-0.2); Basophils % (A) 1 %; Eosinophils # (A) 0.3 k/uL (0-0.7); Eosinophils % (A) 3 %; HCT 46.1 % (39.0-53.0); HGB 14.8 gm/dL (13.0-17.5); Lymphocytes # (A) 3.8 k/uL (1.0-4.8); Lymphocytes % (A) 45 %; MCH 28.9 pg (25.0-35.0); MCHC 32.2 g/dL (31.0-37.0); Mean Platelet Volume 8.7; Monocytes # (A) 0.6 k/uL (0-1.0); Monocytes % (A) 7 %; Neutrophils # (A) 3.6 k/uL (1.3-7.7); Neutrophils % (A) 43 %; Platelet Count 178 k/uL (150-450); RBC 5.12 m/uL (4.30-5.90); RDW 13.8 % (11.5-15.5); WBC 8.5 k/uL (3.8-10.6)
[2018-03-31 23:16] LABS: ALT 26 U/L (21-72); AST 20 U/L (17-59); Albumin 3.9 g/dL (3.5-5.0); Alkaline Phosphatase 25 U/L (38-126); Anion Gap 6 mmol/L; Blood Urea Nitrogen 17 mg/dL (9-20); Carbon Dioxide 28 mmol/L (22-30); Chloride 110 mmol/L (98-107); Glucose 93 mg/dL (74-99); Potassium 4.7 mmol/L (3.5-5.1); Sodium 144 mmol/L (137-145); Total Bilirubin 0.3 mg/dL (0.2-1.3); Total Protein 6.6 g/dL (6.3-8.2)
[2018-03-31 23:57] VITALS: BP 108/56; PULSE 61; RESP 18; TEMP 98
== END 2018-04-01 08:25 ==
LOC: EC 20:01
DX: F31.9 Bipolar disorder, unspecified (principal); F41.9 Anxiety disorder, unspecified; F90.9 Attention-deficit hyperactivity disorder, unspecified type; J45.909 Unspecified asthma, uncomplicated; G40.909 Epilepsy, unspecified, not intractable, without status epilepticus; F17.200 Nicotine dependence, unspecified, uncomplicated; Z79.51 Long term (current) use of inhaled steroids; Z79.84 Long term (current) use of oral hypoglycemic drugs; Z79.899 Other long term (current) drug therapy; Z91.030 Bee allergy status
CPT/HCPCS: 36415; 80053; 80306; 82075; 85025; 99285